=== PATIENT | female | born 1990 | race Two or more races ===

== ENCOUNTER → 2020-03-26 10:53 | Outpatient (BNVA) | payer MEDICAID, SELFPAY | PROVIDERS: PCP Internal Medicine Geriatric Medicine; Referring Provider Internal Medicine Geriatric Medicine; Visit Provider Surgery | DX: N64.4 Mastodynia (principal); Z98.82 Breast implant status | CPT/HCPCS: 99212 ==

== ENCOUNTER 2020-12-11 13:43 | Outpatient (REF) | payer MEDICAID, SELFPAY ==
--- NOTE | ~2020-12-11 | CT_ITS ---
EXAMINATION: CT HEAD WITHOUT CONTRAST CLINICAL INFORMATION: Headache COMPARISON: None TECHNIQUE: Contiguous axial imaging was performed from the skull base to vertex without intravenous administration of contrast. This CT examination was performed using dose optimization techniques as appropriate, variously including the following: *Automated exposure control *Adjustment of mA and/or kV according to patient size (this includes techniques or standardized protocols for targeted exams where dose is matched to indication/reason for exam; i.e. extremities or head) *Use of iterative reconstruction technique DLP: 789 mGy-cm FINDINGS: There is no evidence of acute intracranial hemorrhage or territorial infarction. No abnormal mass effect or midline shift is seen. Latif to white matter differentiation is well preserved. No extra-axial fluid collections are identified. The ventricles are normal in size. There is no abnormal attenuation within the brain parenchyma. The osseous structures and soft tissues are normal. There is mild mucoperiosteal thickening right posterior ethmoid and sphenoid sinuses. Rest of the paranasal sinuses and mastoid air cells are well aerated. CT/CT head/brain wo con IMPRESSION: No acute intracranial process seen. Chronic right posterior ethmoid and sphenoid sinus inflammatory changes.
== END 2020-12-11 13:44 | disposition home or self-care (01) ==
LOC: HO.CT 13:43
PROVIDERS: PCP Internal Medicine Geriatric Medicine; Visit Provider Internal Medicine Geriatric Medicine
DX: R51.9 Headache, unspecified (principal); Z84.89 Family history of other specified conditions
CPT/HCPCS: 70450

== ENCOUNTER 2021-01-04 01:42 | Emergency (ER) | payer MEDICAID, SELFPAY ==
[2021-01-04 01:55] VITALS: BP 106/72; PULSE 66; RESP 16; TEMP 36.3; O2SAT 100; BMI 25.8
--- NOTE | 2021-01-04 03:32 | ED.EYEPROB ---
HPI - Eye Problem General Chief complaint: Eye Problems Stated complaint: Eye swelling Time Seen by Provider: 01/04/21 03:32 Source: patient Mode of arrival: ambulatory Limitations: no limitations History of Present Illness HPI Narrative: left eye is swollen hot and tender, denies injury. patient is concerned that something fell in her eye. Patient denies anything getting into her eye. The pain started yesterday chief complaint: eye pain and eye redness Onset (ago): day(s) Onset description: gradual Duration: constant Location: left eye Eye Symptoms: redness Mechanism: none Severity: moderate Related Data Previous Rx's Medication Instructions Recorded erythromycin 5 mg/gram (0.5 %) eye 0.5 inch OPHTHALMIC (EYE) TID #3.5 01/04/21 ointment g Allergies Allergy/AdvReac Type Severity Reaction Status Date / Time aspirin [ASPIRIN] Allergy Severe RASH Verified 01/04/21 01:55 Review of Systems Constitutional: Constitutional: Reports no additional constitutional complaints Eyes: Eyes: Reports no additional eye complaints ENT: Denies dizziness Cardiovascular: Cardiovascular: Reports no additional cardiovascular complaints Respiratory: Respiratory: Reports as per HPI Gastrointestinal: Gastrointestinal: Reports no additional gastrointestinal complaints Genitourinary: Genitourinary: Reports no additional female genitourinary complaints Musculoskeletal: Musculoskeletal: Reports no additional musculoskeletal complaints Integumentary/Breasts: Skin/Breast: Denies rash Neurologic: Reports system reviewed and no additional complaints, except as documented, Denies dizziness and Denies Sensory deficit (Neuro) Psychiatric: Psychiatric: Denies anxiety PMFSH Past Medical History Surgical History History of breast augmentation (~10/13/18) History of tubal ligation (~02/10/14) Family History Family History Father History of colon polyps Mother History of skin cancer Social History Social History Alcohol intake: current Alcohol intake frequency: holidays/special occasions only Advance Directives: No Patient : No Physical Exam Vital Signs: Vital Signs: Last Vital Signs Temp 97.3 F 01/04/21 01:55 Pulse 66 01/04/21 01:55 Resp 16 01/04/21 01:55 BP 106/72 01/04/21 01:55 Pulse Ox 100 01/04/21 01:55 Body Mass Index 25.8 Const: General: healthy appearing Nutritional Appearance: average body habitus Orientation/consciousness: oriented to person and patient oriented x3 Limitations: no limitations HENMT: Head: Yes normal to inspection Ears: external ears normal General nose exam: Normal external nose present Mouth: Normal oral and palatal mucosa present and oropharynx normal Throat: Yes posterior oropharynx normal Eyes: Other: left upper eyelid with swelling and erythema consistent with infection, conjunctiva with no injection Neck: Other: supple Neck: Yes normal visual inspection Chest: Chest palpation & inspection: normal inspection of the chest Resp: Auscultation: clear to auscultation bilaterally Cardio: Jugular venous distension: no JVD Rate: regular rate Rhythm: regular rhythm Heart sounds: S1 normal heart sound present and S2 normal heart sound present GI: Inspection: Yes normal to inspection Palpation (GI): Soft to palpation, nontender and No hepatosplenomegaly present Auscultation: normal bowel sounds : General: Yes no CVA tenderness Back/Spine/Pelvis: Back: no CVA tenderness Skin: General skin exam: no rashes or lesions noted Neuro: General: oriented to person and patient oriented x3 Cranial nerves: Yes CN's II-XII intact bilaterally Motor exam (neuro): 5/5 motor strength present throughout Sensory Exam: No Sensory deficit (Neuro) Extrem: General: Yes normal to inspection Psych: Appearance: grossly normal Course Reevaluation(s) Reevaluation #1: upper eyelid consistent with infection will treat with erythromycin ointment and warm soaks Time: 03:39 Discharge Plan Discharge Clinical Impression: Hordeolum external Qualifiers: Laterality: left Eyelid: upper Qualified Code(s): H00.014 - Hordeolum externum left upper eyelid Patient Disposition: Home, Self-Care Additional Instructions: warm soaks to eye three times a day, apply erythromycin three times a day Prescriptions: New erythromycin 5 mg/gram (0.5 %) ointment 0.5 inch ophthalmic (eye) TID Qty: 3.5 RF: 0 Referrals: Name,MD Ephraim [Primary Care Provider] - 1 week
[2021-01-04] MEDS: Erythromycin Base 0.5% Oph Oin 1 GM TUBE 1 CM EYE-LEFT (04:38)
== END 2021-01-04 04:48 | disposition home or self-care (01) ==
PROVIDERS: Emergency Provider Emergency Medicine; PCP Internal Medicine Geriatric Medicine
DX: H00.014 Hordeolum externum left upper eyelid (principal); H57.12 Ocular pain, left eye
CPT/HCPCS: 99283

== ENCOUNTER 2021-01-06 02:12 | Emergency (ER) | payer MEDICAID, SELFPAY ==
[2021-01-06 02:41] VITALS: BP 104/73; PULSE 67; RESP 16; TEMP 36.8; O2SAT 100; BMI 25.4
--- NOTE | 2021-01-06 06:11 | ED.EYEPROB ---
HPI - Eye Problem General Chief complaint: Eye Problems Stated complaint: swollen eye Time Seen by Provider: 01/06/21 06:06 Source: patient Mode of arrival: ambulatory Limitations: no limitations History of Present Illness HPI Narrative: Patient comes emergency room complaining of left eye swelling. Patient states that she was evaluated 2 days ago, given erythromycin ointment, states that her eye keeps getting puffier, more red, more tender. Patient also complaining of sticky discharge from her eye. Patient denies fever or chills. Patient denies foreign body sensation Related Data Previous Rx's Medication Instructions Recorded erythromycin 5 mg/gram (0.5 %) eye 0.5 inch OPHTHALMIC (EYE) TID #3.5 01/04/21 ointment g cephalexin 500 mg capsule 500 mg PO BID 7 Days #14 cap 01/06/21 erythromycin 5 mg/gram (0.5 %) eye 1 appl OPHTHALMIC (EYE) DAILY #1 g 01/06/21 ointment Allergies Allergy/AdvReac Type Severity Reaction Status Date / Time aspirin [ASPIRIN] Allergy Severe RASH Verified 01/06/21 02:40 Review of Systems Review of Systems: Constitutional : No Weight loss, No Fever, No Chills, No Night Sweats, No Fatigue, No Malaise ENT/Mouth : No Hearing loss, No Ear Pain, No Nasal Congestion, No Sinus Pain, No Hoarseness, No sore throat, No Rhinorrhea, No Swallowing Difficulty Eyes: Blepharitis versus hordeolum, swelling, erythema, pain Cardiovascular : No Chest Pain, No SOB, No Dyspnea on Exertion, No Orthopnea, No Edema, No Palpitations Respiratory : No Cough, No Sputum, No Wheezing, No Smoke Exposure, No Dyspnea Gastrointestinal : No Nausea, No Vomiting, No Diarrhea, No Constipation, No abdominal Pain, No Hematochezia, No Melena Genitourinary : no irregular bleeding, No Dysuria, No Urinary Frequency, No Hematuria, No Urinary Incontinence, No Urgency, No Flank Pain, No Urinary Flow Changes, No Hesitancy Musculoskeletal : No joint pain, No Myalgias, No Joint Swelling Skin : No Skin Lesions, No rash Neuro : No Weakness, No Numbness, No Paresthesias, No Loss of Consciousness, No Dizziness, No Headache Psych : No Anxiety/Panic, No Depression, No SI/HI/AH/VH, No Social Issues, Heme/Lymph: No Bruising, No Bleeding,No Lymphadenopathy Endocrine : No Polyuria, No Polydipsia, No Temperature Intolerance PENDING SALE TO [facility] Past Medical History Surgical History History of breast augmentation (~10/13/18) History of tubal ligation (~02/10/14) Family History Family History Father History of colon polyps Mother History of skin cancer Social History Social History Alcohol intake: current Alcohol intake frequency: holidays/special occasions only Advance Directives: No Physical Exam Vital Signs: Vital Signs: Last Vital Signs Temp 98.3 F 01/06/21 02:41 Pulse 67 01/06/21 02:41 Resp 16 01/06/21 02:41 BP 104/73 01/06/21 02:41 Pulse Ox 100 01/06/21 02:41 Body Mass Index 25.4 Const: Other: Appearance: Alert. Oriented X3. No acute distress. Eyes: Pupils equal, round and reactive to light. Left upper eyelid is swollen, erythematous, painful to palpation, mild discharge in the eye, conjunctivae within normal limits. Patient does not have painful eye movements, range of motion within normal limits. ENT: Pharynx normal. Neck: Normal inspection. Neck supple. No lymph nodes noted. No crepitus CVS: Normal heart rate and rhythm. Pulses normal. Normal S1 and S2 Respiratory: No respiratory distress. Breath sounds normal. No Wheezing. No rales Abdomen: Soft and nontender. No rigidity. No distention. good BS x4 Skin: Skin warm and dry. Normal skin color. Normal skin turgor. Extremities: No lower extremity edema. No Lacerations. No Rash Neuro: Oriented X 3. No motor deficit. No sensory deficit. Moving all extermities. No slurred speech. Course Course Course Narrative: I discussed the physical exam with the patient, she likely has a hordeolum vs blepharitis. Patient instructed to continue using your medicine ointment, use warm compresses, and additionally patient will be treated with cephalexin p.o. Discharge Plan Discharge Clinical Impression: Hordeolum externum left upper eyelid Patient Disposition: Home, Self-Care Instructions: [place] (ED) Additional Instructions: Please follow-up with your primary care physician tomorrow. If you have any worsening or new symptoms, please return to the emergency room or call 911 Prescriptions: New cephalexin 500 mg capsule 500 mg PO BID 7 Days Qty: 14 RF: 0 erythromycin 5 mg/gram (0.5 %) ointment 1 appl ophthalmic (eye) DAILY Qty: 1 RF: 0 No Action erythromycin 5 mg/gram (0.5 %) ointment 0.5 inch ophthalmic (eye) TID Qty: 3.5 RF: 0
== END 2021-01-06 06:22 | disposition home or self-care (01) ==
PROVIDERS: Emergency Provider Emergency Medicine
DX: H00.014 Hordeolum externum left upper eyelid (principal); H57.12 Ocular pain, left eye; Z79.899 Other long term (current) drug therapy
CPT/HCPCS: 99283

== ENCOUNTER 2021-05-07 14:25 | Outpatient (REF) | payer MEDICAID, SELFPAY ==
--- NOTE | ~2021-05-07 | US_ITS ---
EXAMINATION: US DIAGNOSTIC ULTRASOUND BREAST, RIGHT CLINICAL INFORMATION: 22-year-old with chronic fullness retroareolar right breast several centimeters in size noted for approximately 3-4 years. No discharge. Bilateral implants placed approximately 4 years ago in [place]. No known family history breast cancer. Score 7%. COMPARISON: Diagnostic right breast ultrasound 11/24/2019, 09/30/2018. TECHNIQUE: Ultrasound right breast is targeted to the retroareolar and periareolar region. Grayscale imaging and color Doppler are performed without and with harmonics. Comparison imaging left breast is performed at time of real-time scanning. FINDINGS: There is no focal suspicious finding. There is no solid mass, architectural abnormality, duct ectasia, or edema in the soft tissue planes. No internal asymmetry appreciated on comparison imaging. The anterior implant surface appears smooth. Results are discussed with the patient at time of visit, using an gas and oil checker. Surgical consult for palpable concern was discussed. If there is concern for implant integrity, breast MRI would be recommended. US/US breast RT limited IMPRESSION: Unremarkable targeted right breast ultrasound. ASSESSMENT: BI-RADS 1: Negative RECOMMENDATION: Patient should be managed based on the clinical impression. If clinically indicated, further evaluation may be considered with surgical consult. Decision to proceed with biopsy should be based on clinical grounds and degree of clinical concern. Breast MRI may be considered if there is concern for implant integrity.
== END 2021-05-07 14:26 | disposition home or self-care (01) ==
LOC: HO.MAMMO 14:25
PROVIDERS: Visit Provider Advanced Practice Midwife
DX: N63.41 Unspecified lump in right breast, subareolar (principal)
CPT/HCPCS: 76642

== ENCOUNTER 2021-05-07 15:30 | Emergency (ER) | payer MEDICAID, SELFPAY | END 2021-05-07 20:40 | disposition left against medical advice (07) | PROVIDERS: Emergency Provider Emergency Medicine; PCP Internal Medicine Geriatric Medicine | DX: K08.89 Other specified disorders of teeth and supporting structures (principal) ==

== ENCOUNTER 2021-05-17 16:03 | Emergency (ER) | payer MEDICAID, SELFPAY | END 2021-05-17 19:11 | disposition left against medical advice (07) | PROVIDERS: Emergency Provider Emergency Medicine | DX: U07.1 COVID-19 (principal) ==

== ENCOUNTER 2021-07-06 14:27 | Emergency (ER) | payer OTHER, SELFPAY ==
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
[2021-07-06 14:30] VITALS: BP 107/68; PULSE 99; RESP 16; TEMP 36.9; O2SAT 99; BMI 24.0
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
[2021-07-06 17:06] VITALS: BP 110/71; PULSE 71; RESP 16; O2SAT 99
== END 2021-07-06 18:00 | disposition home or self-care (01) ==
PROVIDERS: Emergency Provider Internal Medicine; PCP Internal Medicine Geriatric Medicine
DX: S06.0X0A Concussion without loss of consciousness, initial encounter (principal); S13.4XXA Sprain of ligaments of cervical spine, initial encounter; M54.50 Low back pain, unspecified; R07.81 Pleurodynia; M54.2 Cervicalgia; V43.52XA Car driver injured in collision with other type car in traffic accident, initial encounter; Y93.9 Activity, unspecified; Y92.411 Interstate highway as the place of occurrence of the external cause; Y99.9 Unspecified external cause status
CPT/HCPCS: 70450; 70490; 71111; 72100; 99283

== ENCOUNTER 2021-09-08 14:47 | Emergency (ER) | payer MEDICAID, SELFPAY ==
--- NOTE | ~2021-09-08 | CT_ITS ---
EXAMINATION: CT FACIAL BONES WITHOUT CONTRAST CLINICAL INFORMATION: Concern for right jaw fracture. COMPARISON: Neck CT 07/06/2021. TECHNIQUE: CT of the face was performed without contrast. Multiplanar reformats were rendered and reviewed. This CT examination was performed using dose optimization techniques as appropriate, variously including the following: *Automated exposure control *Adjustment of mA and/or kV according to patient size (this includes techniques or standardized protocols for targeted exams where dose is matched to indication/reason for exam; i.e. extremities or head) *Use of iterative reconstruction technique DLP: 420 mGy-cm FINDINGS: There has been interval resection of the previously noted expansile lesion involving the right posterior mandible and the right posterior mandibular molar which was incorporated within the lesion has been extracted. There is now hyperdense material along the margins of the resection bed with the internal portion of the cavity demonstrating soft tissue attenuation. The inferior alveolar nerve canal is seen traversing through the resection bed. No mandibular fracture is seen. No inflammatory changes are seen within the glass robot operator space or along the floor of mouth. The upper neck soft tissues are within normal limits. The pharyngeal and laryngeal contours appear normal. There is no retropharyngeal collection. There is moderate circumferential lobular mucosal thickening in the right maxillary sinus with small amount of aerated secretions. Small amount of aerated secretions are also seen within the sphenoid sinus. There is trace opacification of the right posterior mastoid. The imaged intracranial contents are unremarkable. CT/CT facial bones wo con IMPRESSION: Previously seen lesion within the right posterior mandible has been resected and the involvement posterior mandibular molar has been extracted. Hyperdensity seen along the margins of the resection bed is likely treatment related. Correlation with surgical history would be helpful. No evidence of mandibular fracture. No acute inflammatory changes are seen. Moderate circumferential lobular mucosal thickening seen in the right maxillary sinus with small amount of aerated secretions seen in the maxillary sinus and sphenoid sinus.
[2021-09-08 15:02] VITALS: BP 108/70; PULSE 79; RESP 18; TEMP 36.8; O2SAT 100; BMI 24.0
--- NOTE | 2021-09-08 16:01 | ED_ITS ---
HPI - Dental/Oral General Chief complaint: Dental/Oral Stated complaint: dental pain Time Seen by Provider: 09/08/21 16:00 Source: patient and parts interpreter Mode of arrival: ambulatory Limitations: language barrier History of Present Illness HPI Narrative: Patient is a 30 year old female presenting to the emergency department today with right jaw pain. 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 Patient states that she bit something awkwardly yesterday and is now having right jaw pain. Patient states that she is concerned that she broke the right side of her jaw and would like imaging. Patient states that she is scheduled to have a bone graft done on the right side of her jaw to reinforce the thin areas after the tumor removal. Patient denies any dizziness, lightheadedness, abdominal pain, nausea, vomiting, fever, chills, blurry vision, double vision, loss of vision, chest pain, difficulty breathing, shortness of breath, back pain, night sweats, pain with urination, increased urinary frequency, increased urinary urgency, blood in her urine or stool, syncope or a near syncopal episode, recent trauma or falls, bowel incontinence, bladder incontinence, bowel retention, bladder retention, or any other complaints at this time. Severity: mild Severity scale (1-10): 3 Relieving factors: nothing Exacerbating factors: chewing Treatment prior to arrival: none Related Data Previous Rx's Medication Instructions Recorded erythromycin 5 mg/gram (0.5 %) eye 0.5 inch OPHTHALMIC (EYE) TID #3.5 01/04/21 ointment g cephalexin 500 mg capsule 500 mg PO BID 7 Days #14 cap 01/06/21 erythromycin 5 mg/gram (0.5 %) eye 1 appl OPHTHALMIC (EYE) DAILY #1 g 01/06/21 ointment acetaminophen 500 mg tablet 1,000 mg PO QID PRN #14 tab 07/06/21 (Tylenol Extra Strength) cyclobenzaprine 10 mg tablet 10 mg PO Q8H PRN #14 tab 07/06/21 Allergies Allergy/AdvReac Type Severity Reaction Status Date / Time aspirin [ASPIRIN] Allergy Severe RASH Verified 09/08/21 15:02 Review of Systems Constitutional: Constitutional: Reports no additional constitutional complaints, Denies chills, Denies fever(s) and Denies night sweats Eyes: Eyes: Reports no additional eye complaints, Denies blurry vision, Denies change in vision, Denies diplopia, Denies eye discharge, Denies loss of vision and Denies eye pain ENT: Denies dizziness Comments: jaw pain Cardiovascular: Cardiovascular: Reports no additional cardiovascular complaints, Denies chest pain, Denies lightheadedness, Denies Loss of Consciousness and Denies dyspnea Respiratory: Respiratory: Reports no additional respiratory complaints and Denies dyspnea Gastrointestinal: Gastrointestinal: Reports no additional gastrointestinal complaints, Denies abdominal pain, Denies melena, Denies hematochezia, Denies change in bowel habits and Denies change in stool character Genitourinary: Genitourinary: Denies hematuria, Denies urinary frequency, Denies dysuria, Denies urinary incontinence, Denies urinary hesitancy and Denies urinary urgency Musculoskeletal: Musculoskeletal: Reports no additional musculoskeletal complaints, Denies numbness and Denies tingling Neurologic: Denies dizziness, Denies loss of vision, Denies numbness and Denies tingling Psychiatric: Psychiatric: Reports no additional psychiatric complaints Endocrine: Endocrine: Reports no additional endocrine complaints Hematologic/Lymphatic: Hematologic/Lymphatic: Reports no additional hematologic/lymphatic complaints Allergic/Immunologic: Allergic/Immunologic: Reports no additional allergic/immunologic complaints PMFSH Past Medical History Attestation statement: The following information was validated with the patient. Source: old records reviewed Surgical History History of breast augmentation (~10/13/18) History of tubal ligation (~02/10/14) Family History Family History Father History of colon polyps Mother History of skin cancer Social History Social History Alcohol intake: current Alcohol intake frequency: holidays/special occasions only Advance Directives: No Advance Directives Information Provided: No Patient : No Physical Exam Vital Signs: Vital Signs: Last Vital Signs Temp 98.2 F 09/08/21 15:02 Pulse 79 09/08/21 15:02 Resp 18 09/08/21 15:02 BP 108/70 09/08/21 15:02 Pulse Ox 100 09/08/21 15:02 BMI result Body Mass Index 24.0 Const: General: cooperative, no acute distress, alert and awake Nutritional Appearance: well nourished Orientation/consciousness: patient oriented x3 Limitations: no limitations HEENT: Head: Yes normal to inspection and Yes atraumatic Ears: hearing carmita ssly normal bilaterally and external ears normal General nose exam: Normal external nose present, no nasal discharge noted and no epistaxis Face and sinus: Yes normal facial exam, No abrasion and No laceration Mouth: Normal oral and palatal mucosa present, no drooling and no muffled voice Eyes: General: appearance normal, both eyes and all related structures Periorbital: periorbital findings normal Eyelids: Yes eyelids normal Conjunctivae: conjunctivae normal Pupils: Equal, round and reactive pupils present EOM: EOMs intact bilaterally Neck: Neck: Yes normal visual inspection, Yes full ROM and Yes no lymphadenopathy Chest: Chest palpation & inspection: normal inspection of the chest Resp: Effort & Inspection: normal respiratory effort and able to speak in co mplete sentences Auscultation: clear to auscultation bilaterally Cardio: Rate: regular rate Rhythm: regular rhythm GI: Inspection: Yes normal to inspection Neuro: General: patient oriented x3 and moves all extremities Cranial nerves: Yes Equal, round and reactive pupils present Cognition (Neuro): normal cognition Motor exam (neuro): 5/5 motor strength present throughout Sensory Exam: Normal double simultaneous stimulation for sensation Coordination: [id number] test normal Extrem: General: Yes normal to inspection, Yes full ROM and Yes capillary refill normal Psych: Appearance: grossly normal Mental Status: mental status grossly normal Affect: normal affect Attitude: cooperative Thought process: Normal thought process present Thought content: Normal thought content present Insight: Good insight present (Psych) MDM - Dental/Oral MDM Narrative Medical decision making narrative: Patient is a 30 year old female presenting to the emergency department today with right sided jaw pain. Patient's physical exam was unremarkable. Patient's CT facial bones showed a resected lesion within the right posterior mandible but no acute process. I explained my physical exam findings as well as all test results to the patient. I answered all questions asked by the patient. I stressed the importance of the patient taking her medication as prescribed. I stressed the importance of the patient following up with her primary care provider and her maxilofacial surgeon. I stressed the importance of the patient returning to the emergency department immediately if her symptoms were to worsen or if she were to develop any dizziness, shortness of breath, difficulty breathing, chest pain, blurry vision, loss of vision, nausea, vomiting, abdominal pain, fever, chills, back pain, or any other complaints. Patient verbalized agreement and understanding with this treatment plan and discharge. Differential Diagnosis Differential diagnosis: Unlikely dental caries (right jaw pain) Medical Records Attestation: I reviewed the patient's medical records. Imaging Data CT Facial bones: Attestation: I personally reviewed and interpreted this imaging study as follows: Radiologist's impression: EXAMINATION: CT FACIAL BONES WITHOUT CONTRAST CLINICAL INFORMATION: Concern for right jaw fracture.? COMPARISON: Neck CT 07/06/2021.? TECHNIQUE: CT of the face was performed without contrast. Multiplanar reformats were rendered and reviewed. This CT examination was performed using dose optimization techniques as appropriate, variously including the following: *Automated exposure control *Adjustment of mA and/or kV according to patient size (this includes techniques or standardized protocols for targeted exams where dose is matched to indication/reason for exam; i.e. extremities or head) *Use of iterative reconstruction technique DLP: 420 mGy-cm FINDINGS: There has been interval resection of the previously noted expansile lesion involving the right posterior mandible and the right posterior mandibular molar which was incorporated within the lesion has been extracted. There is now hyperdense material along the margins of the resection bed with the internal portion of the cavity demonstrating soft tissue attenuation. The inferior alveolar nerve canal is seen traversing through the resection bed. No mandibular fracture is seen. No inflammatory changes are seen within the miller head wet process space or along the floor of mouth. The upper neck soft tissues are within normal limits. The pharyngeal and laryngeal contours appear normal. There is no retropharyngeal collection. There is moderate circumferential lobular mucosal thickening in the right maxillary sinus with small amount of aerated secretions. Small amount of aerated secretions are also seen within the sphenoid sinus. There is trace opacification of the right posterior mastoid. The imaged intracranial contents are unremarkable. CT/CT facial bones wo con IMPRESSION: Previously seen lesion within the right posterior mandible has been resected and the involvement posterior mandibular molar has been extracted. Hyperdensity seen along the margins of the resection bed is likely treatment related. Correlation with surgical history would be helpful. No evidence of mandibular fracture. No acute inflammatory changes are seen. ? Moderate circumferential lobular mucosal thickening seen in the right maxillary sinus with small amount of aerated secretions seen in the maxillary sinus and sphenoid sinus. Dictated By: MOIZ MEDINA MD Signed By: Electronically signed by MOIZ MEDINA MD 09/08/21 0236 Discharge Plan Discharge Clinical Impression: Jaw pain Patient Disposition: Home, Self-Care Instructions: Atypical Facial Pain (ED) Additional Instructions: Follow up with your primary care provider and maxilofacial surgeon as scheduled. Return to the emergency department immediately if your symptoms worsen or if you develop any dizziness, shortness of breath, difficulty breathing, chest pain, blurry vision, loss of vision, nausea, vomiting, abdominal pain, fever, chills, back pain, or any other complaints. Prescriptions: No Action erythromycin 5 mg/gram (0.5 %) ointment 0.5 inch ophthalmic (eye) TID Qty: 3.5 0RF cephalexin 500 mg capsule 500 mg PO BID 7 Days Qty: 14 0RF erythromycin 5 mg/gram (0.5 %) ointment 1 appl ophthalmic (eye) DAILY Qty: 1 0RF acetaminophen [Tylenol Extra Strength] 500 mg tablet 1,000 mg PO QID PRN (Reason: fever or pain) Qty: 14 0RF cyclobenzaprine 10 mg tablet 10 mg PO Q8H PRN (Reason: Muscle spasm) Qty: 14 0RF Referrals: Name,MD Ephraim [Primary Care Provider] - (Follow up with your PCP. ) Interventions: ED Discharge Assessment Last Done: 09/08/21 18:49 Discharge Date/Time: 09/08/21 18:49 Print Language: Czech
[2021-09-08] MEDS: HYDROcodone Bit/Acetam 5/325 TABLET 1 TAB PO (18:35)
== END 2021-09-08 18:49 | disposition home or self-care (01) ==
PROVIDERS: Emergency Provider Emergency Medicine; PCP Internal Medicine Geriatric Medicine
DX: K08.89 Other specified disorders of teeth and supporting structures (principal); R68.84 Jaw pain; Z79.899 Other long term (current) drug therapy
CPT/HCPCS: 70486; 99283; 99284

== ENCOUNTER 2021-12-01 00:07 | Emergency (ER) | payer MEDICAID, SELFPAY ==
--- NOTE | 2021-12-01 00:25 | ECG_ITS ---
Test Reason : DIZZINESS Blood Pressure : / mmHG Vent. Rate : 080 BPM Atrial Rate : 080 BPM P-R Int : 134 ms QRS Dur : 098 ms QT Int : 390 ms P-R-T Axes : 051 058 045 degrees QTc Int : 449 ms Normal sinus rhythm Normal ECG When compared to the previous EKG of No significant changes seen Referred By: Jesus Ascencio Electronically Signed By:Ozzie Baker
[2021-12-01 00:51] VITALS: BP 118/77; PULSE 97; RESP 16; TEMP 36.5; O2SAT 95; BMI 21.9
[2021-12-01 00:53] LABS: MANUAL DIFF FLAG NO
[2021-12-01 00:59] LABS: Basophils Percent Auto 0.3 % (0-2); Eosinophils Absolute Auto 0.2 X10*3/uL (0.0-0.4); Eosinophils Percent Auto 1.9 % (0-4); Hematocrit 37.1 % (37.0-47.0); Hemoglobin 12.7 g/dl (12.0-16.0); Imm Gran Abs Auto 0.03 X10*3/uL (0.00-0.03); Imm Gran Pct Auto 0.4 % (0.0-0.4); Lymphocytes Absolute Auto 3.4 X10*3/uL (1.2-4.9); Lymphocytes Percent Auto 42.9 % (20-40); Mean Corpuscular HGB Conc 34.2 g/dl (31.0-35.0); Mean Corpuscular Hemoglobin 30.6 pg (27.0-33.0); Mean Corpuscular Volume 89.4 fL (80.0-98.0); Mean Platelet Volume 9.3 fL (9.4-12.3); Monocytes Absolute Auto 0.5 X10*3/uL (0.1-1.2); Monocytes Percent Auto 6.5 % (2-11); Neutrophils Absolute Auto 3.8 x10*3/uL (2.0-8.3); Platelet Count 311 X10*3/uL (160-400); Red Blood Count 4.15 X10*6/uL (4.20-5.50); Red Cell Distribution Width 12.1 % (11.0-16.0)
[2021-12-01 01:21] LABS: Alanine Aminotransferase 11 U/L (0-31); Albumin Level 4.4 g/dL (3.5-5.0); Alkaline Phosphatase 102 U/L (39-117); Anion Gap 13 (12-20); Aspartate Amino Transferase 14 U/L (5-31); Bilirubin Direct 0.3 mg/dL (0.0-0.5); Bilirubin Total 0.5 mg/dL (0.0-1.0); Blood Urea Nitrogen 18 mg/dL (9-16); Carbon Dioxide 22 mmol/L (22-29); Chloride 105 mmol/L (96-108); Creatinine Clr Calc Pharmacy 92.7; Estimated Glomerular Filt Rate > 60; Glucose Random 165 mg/dL (60-115); Lipase 13 U/L (8-78); Potassium 3.4 mmol/L (3.3-5.1); Sodium 137 mmol/L (135-145); Total Protein 7.4 g/dL (6.5-8.0)
== END 2021-12-01 02:58 | disposition left against medical advice (07) ==
PROVIDERS: Emergency Provider Emergency Medicine
DX: R42 Dizziness and giddiness (principal); F41.0 Panic disorder [episodic paroxysmal anxiety]; F12.90 Cannabis use, unspecified, uncomplicated; Z79.899 Other long term (current) drug therapy
CPT/HCPCS: 36415; 80048; 80076; 83690; 85025; 93005; 99281; 99283

== ENCOUNTER 2022-09-30 13:08 | Outpatient (REF) | payer MEDICAID, SELFPAY ==
--- NOTE | ~2022-09-30 | US_ITS ---
EXAMINATION: US DIAGNOSTIC ULTRASOUND BREAST, RIGHT CLINICAL INFORMATION: 31-year-old with chronic stable subareolar palpable areas noted by patient for several years. No increasing size. Intermittent breast tenderness. No erythema or discharge. Bilateral implants placed approximately 5 years ago in [place]. COMPARISON: Right breast ultrasound 05/07/2021, 06/26/2019, 09/30/2018. TECHNIQUE: Ultrasound of the right breast is performed using grayscale imaging and color Doppler without and with harmonics. Exam is targeted to the retroareolar and periareolar anterior and mid breast. Patient is able to point areas of concern at time of imaging. FINDINGS: There is no focal suspicious finding. There is no solid mass, architectural abnormality, duct ectasia, or edema in the soft tissue planes. The implant surface appears smooth. No skin thickening. No hyperemia. There is an incidental simple cyst just under 4 mm 10:00 position 6 cm from nipple. Results are discussed with the patient at time of visit, using an interpreter and translator. Availability of diagnostic mammography for additional evaluation was discussed. In addition, breast MRI was discussed if there is concern regarding the implant integrity. Patient declined additional imaging with mammography at today's appointment. US/US breast RT limited IMPRESSION: - No solid mass or architectural abnormality. - Incidental tiny cyst 10:00 position. ASSESSMENT: BI-RADS 2: Benign RECOMMENDATION: 1. Patient should be managed based on the clinical impression. If clinically indicated, additional imaging with diagnostic mammography may be considered. If there is concern for implant integrity, then breast MR would be recommended. 2. Otherwise, routine annual screening mammography, beginning age 40, or earlier as clinical risk factors warrant. This patient's information was entered into a reminder system with a target due date for their next mammogram.
== END 2022-09-30 13:09 | disposition home or self-care (01) ==
LOC: HO.MAMMO 13:08
PROVIDERS: Visit Provider Internal Medicine Geriatric Medicine
DX: N63.41 Unspecified lump in right breast, subareolar (principal)
CPT/HCPCS: 76642

== ENCOUNTER 2023-03-22 17:41 | Outpatient (REF) | payer MEDICAID, SELFPAY ==
[2023-03-22 17:55] LABS: Appearance Urine Cloudy; Color Urine Yellow; Glucose Urine UA Negative (Negative); Leukocyte Esterase Urine Small (1+) (Negative); Nitrite Urine Negative (Negative); PH 7.5 (5.0-9.0); Specific Gravity - Urine 1.015 (1.005-1.025); UMIC TRIGGER UACC YES; Urine Blood Moderate (2+) (Negative); Urine Ketones Negative (Negative); Urine Protein 30 (1+) mg/dL (Neg-Trace)
[2023-03-22 17:57] LABS: Bacteria Urine 3+ (None Seen); Hyaline Casts Urine 0-2 /LPF (0-2); RBC Urine >20 /HPF (0-2); Squamous Epithelial Cell Urine 0-2 /HPF (0-2); UACC Culture Trigger YES; WBC Urine >50 /HPF (0-5)
== END 2023-03-22 17:42 | disposition home or self-care (01) ==
LOC: HO.HHCLNP 17:41
PROVIDERS: Visit Provider Nurse Practitioner Family
DX: R30.0 Dysuria (principal)
CPT/HCPCS: 81001; 87086; 87088; 87186

== ENCOUNTER 2023-08-18 18:20 | Outpatient (REF) | payer MEDICAID, SELFPAY ==
[2023-08-23 20:48] LABS: HPV mRNA E6/E7 rflx Not Detected (Not Detected)
[2023-08-23 22:33] LABS: C. trachomatis RNA TMA NOT DETECTED (NOT DETECTED); N. gonorrhoeae RNA TMA NOT DETECTED (NOT DETECTED); Trichomonas (NAAT) NOT DETECTED (NOT DETECTED)
== END 2023-08-18 18:21 | disposition home or self-care (01) ==
LOC: HO.HHCL 18:20
PROVIDERS: Visit Provider Advanced Practice Midwife
DX: R30.0 Dysuria (principal); Z11.3 Encounter for screening for infections with a predominantly sexual mode of transmission; Z12.4 Encounter for screening for malignant neoplasm of cervix
CPT/HCPCS: 36415; 87086; 87491; 87591; 87624; 87661; 88142

== ENCOUNTER 2024-02-24 10:03 | Outpatient (AMB) | payer MEDICAID, SELFPAY ==
--- NOTE | 2024-02-24 10:09 | MHC.OFFVIS ---
Vital Signs 02/24/24 10:27 Height 5 ft 4 in Weight 142 lb BMI 24.4 BP 123/70 Blood Pressure Location Lt brachial Position Sitting Intake Visit Reasons: Breast Pain Intake Note: Patient is seen in office for evaluation and treatment of a right breast cyst. Patient c/o: breast implants in [place] aprox 5+ yrs ago, cyst right breast, ultrasound done 09/30/22, Right sharp breast pain even with the touch. Global Process Owner Required: No Accompanied by: Self / Same As Patient Allergies aspirin [ASPIRIN] Allergy (Severe, Verified 02/24/24 10:15) RASH HPI Comments Details: 33-year-old female patient with a prior history of bilateral breast implants performed in [place] proximally 5 years ago now complaining of pain in the right breast around the nipple-areolar complex. This is been present for least a year but seems to be increasing in severity. She previously underwent ultrasound evaluation of the right breast on 09/30/2022. This revealed no suspicious findings. She was also evaluated by Plastic surgery who felt the implants were intact and no surgical intervention was recommended. Her previous mammogram was performed proximally 2 years ago but is not available at the time of this evaluation. [facility] Surgical History History of breast augmentation (~10/13/18) History of tubal ligation (~02/10/14) Family History Father History of colon polyps Mother History of skin cancer Social History Alcohol intake: current Alcohol intake frequency: holidays/special occasions only Review of Systems Const All systems reviewed & are unremarkable except as noted in HPI and below Physical Exam Vital Signs: Last Vital Signs BP 123/70 02/24/24 10:27 BMI result Body Mass Index 24.4 Const General: cooperative and no acute distress Nutritional Appearance: well nourished Orientation/consciousness: patient oriented x3 Limitations: no limitations HEENT Head: Yes normocephalic and Yes atraumatic Ears: hearing grossly normal bilaterally Chest Other: Bilateral breast implant with well-healed incisions. Left breast: No skin change, no nipple retraction, no nipple discharge, no palpable mass, no enlarged lymph nodes. Right breast: No skin change, no nipple retraction, no nipple discharge, no palpable mass, no enlarged lymph nodes Chest/axillae images: 1. Area reported by patient with a palpable mass. On my examination no discrete masses appreciated. Normal breast tissue and underlying implant. Resp Effort & Inspection: normal respiratory effort, no audible wheezes, no cough and no respiratory distress Cardio Jugular venous distension: no JVD GI Inspection: Yes normal to inspection Skin Other: Warm, dry, no rash Neuro General: patient oriented x3 Extrem General: Yes no clubbing, cyanosis or edema Assessment & Plan Assessment & Plan (1) Breast pain: Code(s): N64.4 - Mastodynia Category: Medical Plan 33-year-old female patient presenting with complaints of mainly right breast pain which seems to be increasing in severity. Examination today reveals well-healed breast augmentation incisions with no suspicious findings in either breast. I recommended further evaluation with mammogram and ultrasound. We discussed options including prophylactic tamoxifen including the risks associated with this medication. I suggested trial of avoiding caffeine and adding evening [place] as a possible supplement. She will return following the mammogram and ultrasound to reassess her symptoms and review the results of the radiologic studies. She expressed understanding and agrees with the plan. Orders: Orders MM diagnostic mammo BI Today N64.4 - Mastodynia US breast RT complete Today N64.4 - Mastodynia Coding Level of Care Code New Pt Level 4 (87555) Diagnoses Breast pain N64.4
[2024-02-24 10:27] VITALS: BP 123/70; BMI 24.4
== END 2024-02-24 10:35 | disposition home or self-care (01) ==
PROVIDERS: PCP Internal Medicine Geriatric Medicine; Visit Provider Surgery
DX: N64.4 Mastodynia (principal)
CPT/HCPCS: 99204

== ENCOUNTER → 2024-02-24 10:03 | Outpatient (BNVA) | payer MEDICAID, SELFPAY | PROVIDERS: PCP Internal Medicine Geriatric Medicine; Visit Provider Surgery | DX: N64.4 Mastodynia (principal); Z98.82 Breast implant status | CPT/HCPCS: 99202 ==

== ENCOUNTER 2024-03-27 13:47 | Outpatient (REF) | payer MEDICAID, SELFPAY ==
[2024-03-30 05:09] LABS: TS Negative Control Passed; TS Panel A 0; TS Panel B 0; TS Positive Control Passed; TSpotTB Negative (Negative)
== END 2024-03-27 13:48 | disposition home or self-care (01) ==
LOC: HO.HHCL 13:47
PROVIDERS: Visit Provider Internal Medicine Geriatric Medicine
DX: Z11.1 Encounter for screening for respiratory tuberculosis (principal)
CPT/HCPCS: 36415; 86481

== ENCOUNTER 2024-04-19 12:54 | Outpatient (REF) | payer MEDICAID, SELFPAY ==
--- NOTE | ~2024-04-19 | MM_ITS ---
EXAMINATION: BILATERAL DIGITAL DIAGNOSTIC TOMOSYNTHESIS MAMMOGRAPHY The right breast ultrasound. INDICATION: Female, 33 years of age presenting for right breast pain and palpable lumps near the area left.. COMPARISON: Comparison is made with relevant prior imaging in PACS. TECHNIQUE: Bilateral full field digital mammography and digital breast tomosynthesis was performed and interpreted with the aid of CAD software. Limited right breast ultrasound. COMPOSITION: There is extremely dense fibroglandular breast tissue. FINDINGS: Bilateral retropectoral implants are normal-appearing. Right: BB marker indicates site of palpable lump and pain without underlying abnormality. No suspicious calcifications, masses or other abnormal findings. Targeted color Doppler ultrasound in the right breast area of pain and palpable lumps from 9-3:00 demonstrates normal fibroglandular breast tissue. There is no sonographic abnormality. Left: No suspicious calcifications or masses or other abnormal findings. MM/MM tomosynthesis diag imp BI IMPRESSION: Left: Negative. Right: No mammographic or sonographic abnormality to account for the area of patient's pain and palpable lumps. Recommend clinical evaluation and follow-up. BI-RADS 1 negative Recommendation: recommend clinical evaluation and follow-up and age-appropriate mammography screening at age 40. These findings and recommendations were communicated to the patient by the technologist. I personally reviewed the study and agree with the dictated report. Electronically signed by: Cherie Thorpe DO 04/19/2024 02:10 PM ALEXANDRE GARCIA
== END 2024-04-19 12:55 | disposition home or self-care (01) ==
LOC: HO.MAMMO 12:54
PROVIDERS: PCP Internal Medicine Geriatric Medicine; Visit Provider Surgery
DX: N64.4 Mastodynia (principal)
CPT/HCPCS: 76642; 77062; 77066

== ENCOUNTER → 2024-04-19 13:30 | Outpatient (BNV) | payer MEDICAID, SELFPAY | PROVIDERS: PCP Internal Medicine Geriatric Medicine; Visit Provider Internal Medicine | DX: N64.4 Mastodynia (principal) | CPT/HCPCS: 76642; 77062; 77066 ==

== ENCOUNTER 2024-04-26 12:28 | Outpatient (REF) | payer MEDICAID, SELFPAY ==
[2024-04-27 14:35] LABS: Bacterial Vaginosis PCR POSITIVE (Negative); Candida Group PCR NOT DETECTED (Not Detect); Candida glab krusei PCR NOT DETECTED (Not Detect); Trichomonas vaginalis PCR NOT DETECTED (Not Detect)
[2024-04-27 14:58] LABS: CT PCR NOT DETECTED (Not Detect.); NG PCR NOT DETECTED (Not Detect.)
== END 2024-04-26 12:29 | disposition home or self-care (01) ==
LOC: HO.HHCLNP 12:28
PROVIDERS: Visit Provider Internal Medicine
DX: N89.8 Other specified noninflammatory disorders of vagina (principal); R30.0 Dysuria
CPT/HCPCS: 0352U; 87086; 87491; 87591

== ENCOUNTER 2024-08-16 16:30 | Outpatient (REF) | payer MEDICAID, SELFPAY ==
--- OUTSIDE RECORDS SUMMARY | 2024-08-16 18:08 | XMS_ITS | Encounter Summary ---
Author Organization [employer] Address [address] [place] [address] Care Team Providers Care Aerodynamic Consultant Name Role Phone Name, Ephraim FERGUSON Primary Care Provider [phone] Encounter Details Date Type Department Care Team (Late st Contact Info) Description 05/13/2022 Abstract [facility] [address], [place] [phone] Name, MD Ephraim [address] [place] [address] Social History Tobacco Use Types Packs/Day Years Used Date Smoking Tobacco: Never Smokeless Tobacco: Never Depression Answer Date Recorded Patient Health Questionnaire-9 Score 24 05/13/2022 Depression Answer Date Recorded Patient Health Questionnaire-2 Score 6 05/13/2022 Comments Unknown Sex and Gender Information Value Date Recorded Sex Assigned at Female 03/16/2022 10:30 AM EDT Legal Sex Female 10:30 AM EDT Gender Identity Female 03/16/2022 10:30 AM EDT Sexual Orientation Straight 03/16/2022 10 :30 AM EDT COVID-19 Exposure Response Date Recorded In the last 10 days, have yo u been in contact with someone who was confirmed or suspected to have Coronavirus/COVID-19? No / Unsure 05/13/2022 3:07 PM EST documented as of this encounter Plan of Treatment Upcoming Encounters Date Type Department Care Team (Late st Contact Info) Description 10/16/2024 3:00 PM EDT Office Visit [facility] [address], [place] [phone] Renetta Negro [address], [place] [phone] 11/07/2024 10:15 AM EDT Office Visit [facility] [place] [address] Name, MD Ephraim [facility] [place] [address] 11/13/2024 10:00 AM EDT Office Visit [facility] [place] [address] Florencia Lee CN [address] [place] [address] documented as of this encounter Visit Diagnoses Not on filedocumented in this encounter Additional Health Concerns Assessment Noted Time PHQ-9 Depression Total Score: 24 022 3:27 PM EST documented as of this encounter Care Teams Aerodynamic Consultant Relationship Specialty Start Date End Date Name, MD Ephraim [facility] [place] [address] PCP - General Family Medicine 01/31/16 documented as of this encounter
--- OUTSIDE RECORDS SUMMARY | 2024-08-16 18:08 | XMS_ITS | Encounter Summary ---
Author Organization [employer] Address [address] [place] [address] Care Team Providers Care Janitorial Tech Name Role Phone Name, Ephraim FERGUSON Primary Care Provider [phone] Encounter Details Date Type Department Care Team (Latest Contact Info) Description 08/16/2024 Travel Social History Tobacco Use Types Packs/Day Years Used Date Smoking Tobacco: Never Passive Smoke Exposure: Never Smokeless Tobacco: Never Alcohol Use Standard Drinks/Week Comments Not Currently 0 (1 standard drink = 0.6 oz pur e alcohol) Occassionally Depression Answer Date Recorded Patient Health Questionnaire-9 Score 24 05/13/2022 Housing Stability Answer Date Recorded What is your housing situation today? I have denniskeyona eason 08/09/[address] you li ve. Do you have problems with any of the following? None of the above 08/09/2023 Food Insecurity Answer Date Recorded Within the past 12 months, y ou worried that your food would run out before you got money to buy more: Never True 08/09/2023 Within the past 12 months,th e food you bought just didn't last and you didn't have enough money to get more: Never True Transportation Answer Date Recorded In the past 12 months, has l ack of transportation kept you from medical appts, meetings, work or from getting things needed for daily living? No 08/09/2023 Utilities Answer Date Recorded In the past 12 months, has t he electric, gas, oil or water company threatened to shut off services in your home? No 08/09/2023 Depression Answer Date Recorded Patient Health Questionnaire-2 Score 6 05/13/2022 Comments No Sex and Gender Information Value Date Recorded Sex Assigned at Female 03/16/2022 10:30 AM EDT Legal Sex Female 10:30 AM EDT Gender Identity Female 03/16/2022 10:30 AM EDT Sexual Orientation Straight 03/16/2022 10 :30 AM EDT documented as of this encounter Plan of Treatment Upcoming Encounters Date Type Department Care Team (Late st Contact Info) Description 10/16/2024 3:00 PM EDT Office Visit [facility] [address] [place] [address] Sruthi, Renetta [address] [place] [address] 11/07/2024 10:15 AM EDT Office Visit [facility] [address] [place] [address] Name, MD Ephraim [address] [place] [address] 11/13/2024 10:00 AM EDT Office Visit [facility] [address] [place] [address] Florencia Lee CNM [address] [place] [address] documented as of this encounter Visit Diagnoses Not on filedocumented in this encounter Additional Health Concerns Assessment Noted Time PHQ-9 Depression Total Score: 24 05/13/2 022 3:27 PM EST documented as of this encounter Care Teams Janitorial Tech Relationship Specialty Start Date End Date NameEphraim MD [address] [place] [id number] PCP - General Family Medicine 01/31/16 documented as of this encounter
--- OUTSIDE RECORDS SUMMARY | 2024-08-16 18:08 | XMS_ITS | Encounter Summary ---
Author Organization [facility] [employer] Address [address] [facility] [address] [place] [address] Care Team Providers Care Workers Compensation Analyst Name Role Phone Name, Ephraim FERGUSON Primary Care Provider [phone] Encounter Details Date Type Department Care Team ([facility] st Contact Info) Description 05/08/2024 Orders Only [facility] [address] [place], [place] [phone] Kermit Rivera MD [address] [place] [address] Social History Tobacco Use Types Packs/Day Years Used Date Smoking Tobacco: Never Passive Smoke Exposure: Never Smokeless Tobacco: Never Alcohol Use Standard Drinks/Week Comments Not Currently 0 (1 standard drink = 0.6 oz pur e alcohol) Occassionally Depression Answer Date Recorded Patient Health Questionnaire-9 Score 24 05/13/2022 Housing Stability Answer Date Recorded What is your housing situation today? I have dennis eason 08/09/[address] you [...] t he electric, gas, oil or water [employer] threatened to shut off services in your [...] Description 10/16/2024 3:00 PM EDT Office Visit [facility] [address] [place] [address] Kem Negroaris [address] [place] [address] 11/07/2024 10:15 AM EDT Office Visit [facility] [address] [place] [phone] Name, MD Ephraim [address] [place] [address] 11/13/2024 10:00 AM EDT Office Visit [facility] [address] [place] [address] Florencia Lee, LEOLA [address] [place] [address] documented as of this encounter Visit Diagnoses Not on filedocumented in this encounter Additional Health Concerns Assessment Noted Time PHQ-9 Depression Total Score: 24 05/13/2 022 3:27 PM EST documented as of this encounter Care Teams Workers Compensation Analyst Relationship Specialty Start Date End Date Name, MD Ephraim [address] [place] [id number] PCP - General Family Medicine 01/31/16 documented as of this encounter
--- OUTSIDE RECORDS SUMMARY | 2024-08-16 18:08 | XMS_ITS | Encounter Summary ---
Author Organization [employer] Address [address] [facility] [address] [place] [address] Care Team Providers Care Sequins Spooler Name Role Phone Name, Ephraim FERGUSON Primary Care Provider [phone] Reason for Visit * Reason Comments Gynecologic Exam Encounter Details Date Type Department Care Team (Latest Contact Info) Description 08/16/2024 10:30 AM EDT Procedure Visit [facility] [address] [place], [place] [phone] Florencia Lee [facility] [address] [place], [place] [phone] Screening examination for venereal disease (Primary Dx) Social History Tobacco Use Types Packs/Day Years [...] AM EDT documented as of this encounter Last Filed Vital Signs Vital Sign Reading Time Taken Comments Blood Pressure 110/69 08/16/2024 10:38 AM EDT Pulse 71 08/16/2024 10:38 AM EDT Temperature 36.6 ??C (97.9 ??F) 08/16/2024 10:38 AM E DT Respiratory Rate 20 08/16/2024 10:38 AM EDT Oxygen Saturation 99% 08/16/2024 10:38 AM EDT Inhaled Oxygen Concentration - - Weight 67.1 kg (148 lb) 08/16/2024 10:38 AM EDT Height 162.6 cm (5' 4 ) 08/16/2024 10:38 AM EDT Body Mass Index 25.4 08/16/2024 10:38 AM EDT documented in this encounter Progress Notes * Florencia Lee CNM - 08/16/2024 10:30 AM EDT Subjective Patient ID: Anna Hall is a 33 y.o. female who presents for [employer] visit Seen by Dr. Bethea 02/2024 for breast pain. Breast imaging negative 04/2024. Last visit with fl 08/2023. Has tubal ligation. Pap NIL/HPV neg 08/2023. Vaginal chlamydia positive, oral negative 07/19. Doxy rx'd. HIV, syphilis, Hep C and gonorrhea from both sites negative. Partner treated, waited until 7 d after treatment to have sex. Was having some cramping prior to diagnosis, this resolved. Would like full STI testing today. No risk factors for Hep C. No Hep B or trichomonas testing on file. Patient seen in conjunction with [employer] Allan student. I was present for and confirmed all pertinent elements in the history, exam, assessment of the patient, and the plan of care, and agree with all findings. Review of Systems Constitutional: Negative for chills and fever. Genitourinary: Negative for pelvic pain and vaginal discharge. Objective BP 110/69 (BP Location: Left arm, Patient Position: Sitting, BP Cuff Size: Adult) Pulse 71 Temp97.9 ??F (36.6 ??C) (Temporal) Resp 20 Ht 5' 4 (1.626 m) Wt 148 lb (67.1 kg) LMP 08/09/2024 (Approximate) SpO2 99% BMI 25.40 kg/m?? Physical Exam Exam conducted with a professor of mathematics present (Florencia Lee CNM). Constitutional: Appearance: Normal appearance. Genitourinary: General: Normal vulva. Labia: Right: No rash, tenderness, lesion or injury. Left: No rash, tenderness, lesion or injury. Vagina: Normal. No signs of injury and foreign body. No vaginal discharge, erythema, tenderness, bleeding, lesions or prolapsed vaginal russell. Cervix: No cervical motion tenderness, discharge, friability, lesion, erythema, cervical bleeding or eversion. Comments: Bimanual deferred Neurological: Mental Status: She is alert. Psychiatric: Mood and Affect: Mood normal. Behavior: Behavior normal. Assessment/Plan Diagnoses and all orders for this visit: Screening examination for venereal disease - Syphilis Screen; Future - HIV-1/2 Antigen and Antibodies, Fourth Generation, with Reflexes; Future - Trichomonas RNA (Urine/Vaginal) - Hepatitis B Core Antibody, Total; Future - Hepatitis B Surface Antibody, Qualitative; Future - Hepatitis B surface antigen, EIA; Future - Chlamydia/N. Gonorrhoeae RNA, TMA, Urogenitial; Future Advised to defer Gonorrhea/Chlamydia testing for another 1-2 weeks as she finished antibiotics lessthan 4 weeks ago. Vaginal trichomonas and serum labs sent. Will contact with results. Pap/HPV Q3y until 2035 due to possible hx cryo/LEEP in 2010. documented in this encounter Plan of Treatment Upcoming Encounters Date Type Department Care Team (Late st Contact Info) Description 10/16/2024 3:00 PM EDT Office Visit [facility] [address] [place] [address] Kem Negroaris [address] [place] [address] 11/07/2024 10:15 AM EDT Office Visit [facility] [address] [place] [address] Name, MD Ephraim [address] [place] [address] 11/13/2024 10:00 AM EDT Office Visit [facility] [address] [place] [address] Florencia Lee CNM [address] [place] [address] Scheduled Orders Name Type Priority Associated Diagnoses Orde r Schedule Syphilis Screen Lab Routine Screening examination for venereal disease Expected: 08/16/2024 (Approximate), Expires: 08/16/2025 HIV-1/2 Antigen and Antibodies, Fourth Generation, with Reflexes Lab Routine Screening examination for venereal disease Expected: 08/16/2024 (Approximate), Expires: 08/16/2025 Trichomonas RNA (Urine/Vaginal) Lab Routine Screening examination for venereal disease Ordered: 08/16/2024 Hepatitis B Core Antibody, Total Lab Routine Screening examination for venereal disease Expected: 08/16/2024 (Approximate), Expires: 08/16/2025 Hepatitis B Surface Antibody, Qualitative Lab Routine Screening examination for venereal disease Expected: 08/16/2024 (Approximate), Expires: 08/16/2025 Hepatitis B surface antigen, EIA Lab Routine Screening examination for venereal disease Expected: 08/16/2024 (Approximate), Expires: 08/16/2025 Chlamydia/N. Gonorrhoeae RNA, TMA, Urogenitial Microbiology Routine Screening examination for venereal disease Expected: 08/30/2024 (Approximate), Expires: 08/16/2025 documented as of this encounter Visit Diagnoses Diagnosis Screening examination for venereal disease- Primary documented in this encounter Additional Health Concerns Assessment Noted Time PHQ-9 Depression Total Score: 24 022 3:27 PM EST documented as of this encounter Care Teams Sequins Spooler Relationship Specialty Start Date End Date Name, MD Ephraim [address] [place] [address] PCP - General Family Medicine 01/31/16 documented as of this encounter
--- OUTSIDE RECORDS SUMMARY | 2024-08-16 18:08 | XMS_ITS | Clinical Summary ---
Author Organization [employer] Address 75 [facility] 7t [place] [address] Care Team Providers Care Blend Plant Operator Name Role Phone Name, Ephraim FERGUSON Primary Care Provider [phone] Allergies Active Allergy Reactions Criticality Noted Date Comments Aspirin 06/26/2016 Other reaction(s): rash Medications * This document contains information received from the source organization and may not represent a complete record from that organization. SUMAtriptan (Imitrex) 25 MG tablet take 1 tablet by oral route after onset of migraine; may repeat after 2 hours if headache returns,not to exceed 200mg in 24hrs 1 Active sertraline (Zoloft) 50 MG tabletIndicatio ns:Reactive depression,Adju stment insomnia,Anxiet y Take 1 tablet (50 mg) by mouth in the morning. 90 tablet 2 3 Active Additional Information Patient not taking.Reported on 01/10/2024 busPIRone (Buspar) 7.5 MG tabletIndicatio ns:Reactive depression,Adju stment insomnia,Anxiet y Take 1 tablet (7.5 mg) by mouth 2 times daily. 60 tablet 11 3 Active traZODone (Desyrel) 50 MG tabletIndicatio ns:Adjustment insomnia Take 1 tablet (50 mg) by mouth at bedtime. 90 tablet 1 3 Active Additional Information Patient not taking.Reported on 01/10/2024 Hospital, Clinic, or Other Facility Administered Medication Ordered Dose Route Frequency Start Date End Date Status doxycycline (Vibramycin) capsule 100 mgIndications:Chlamydia 100 mg PO 2 times daily 03/01/2024 Active doxycycline (Adoxa) tablet 100 mgIndications:Chlamydia 100 mg PO Once 07/19/2024 07/26/2024 E nded Active Problems Problem Noted Date Diagnosed Date Acute cystitis without hematuria 04/26/2024 Assessment & Plan (04/26/2024 5:28 PM EST): Symptoms started 1 week ago, have been worsening, denied fever/chills, complains of dysuria/frequency/urgency, on examination suprapubic tenderness noted Will start on nitrofurantoin, told to remain well hydrated, urine culture sent, er precautions reviewed Breast pain, right 01/10/2024 Subareolar mass of right breast 01/10/2024 Assessment & Plan (01/10/2024 11:12 AM EDT): Repeat imaging due ( ordered 09/07). Referral to surgeon as pt endorses worsening tenderness Aware of s/s to report Family problems 05/12/2023 Assessment & Plan (05/14/2023 4:22 PM EST): During IBH Consult Anna presenting with depressed mood, loss of interests/pleasure , changes in sleep difficulty falling asleep, change in appetite or weight reduce appetite, trouble concentrating, thoughts of worthlessness or guilt, fatigue/loss of energy, hopelessness, worthlessness , difficulty concentrating and excessive worry/anxiety, difficulty controlling worry, restless/keyed up/On edge, easily fatigued, difficulty concentrating/Mind going blank , irritability, and sleep disturbance difficulty falling asleep; for a period of 0-6 mo, for all symptoms in the context of family issues and relationship issues. Difficult parent relationship is identified as main trigger for symptoms. Anna has lack of support/network which also exacerbates severe depression. PLAN: (check all that apply) New/Additional Services needed PCP management Off-site services for , Behavioral Health Integration Plan External OP therapy referral , Patient Self Plan Patient to utilize skills provided in intervention , Patient to reach out to [facility] team as needed, and Patient to engage in OP therapy Recurrent major depressive disorder 05/12/2022 Assessment & Plan (05/14/2023 4:22 PM EST): During IBH Consult Anna presenting with depressed mood, loss of interests/pleasure , changes in sleep difficulty falling asleep, change in appetite or weight reduce appetite, trouble concentrating, thoughts of worthlessness or guilt, fatigue/loss of energy, hopelessness, worthlessness , difficulty concentrating and excessive worry/anxiety, difficulty controlling worry, restless/keyed up/On edge, easily fatigued, difficulty concentrating/Mind going blank , irritability, and sleep disturbance difficulty falling asleep; for a period of 0-6 mo, for all symptoms in the context of family issues and relationship issues. Difficult parent relationship is identified as main trigger for symptoms. Anna has lack of support/network which also exacerbates severe depression. PLAN: (check all that apply) New/Additional Services needed PCP management Off-site services for , Behavioral Health Integration Plan External OP BH therapy referral , Patient Self Plan Patient to utilize skills provided in intervention , Patient to reach out to [facility] team as needed, and Patient to engage in OP therapy Anxiety 08/24/2018 Assessment & Plan (05/14/2023 4:22 PM EST): During IBH Consult Anna presenting with depressed mood, loss of interests/pleasure , changes in sleep difficulty falling asleep, change in appetite or weight reduce appetite, trouble concentrating, thoughts of worthlessness or guilt, fatigue/loss of energy, hopelessness, worthlessness , difficulty concentrating and excessive worry/anxiety, difficulty controlling worry, restless/keyed up/On edge, easily fatigued, difficulty concentrating/Mind going blank , irritability, and sleep disturbance difficulty falling asleep; for a period of 0-6 mo, for all symptoms in the context of family issues and relationship issues. Difficult parent relationship is identified as main trigger for symptoms. Anna has lack of support/network which also exacerbates severe depression. PLAN: (check all that apply) New/Additional Services needed PCP management Off-site services for , Behavioral Health Integration Plan External OP BH therapy referral , Patient Self Plan Patient to utilize skills provided in intervention , Patient to reach out to [facility] team as needed, and Patient to engage in OP BH therapy Hypertrophy of tonsils 08/24/2018 Palpitations 08/24/2018 Syncope and collapse 08/24/2018 Acne vulgaris 11/05/2017 Epidermoid cyst 11/05/2017 Encounters Date Type Department Care Team Description 08/16/2024 10:30 AM EDT Procedure Visit [facility] [place] [address] Florencia Lee CNM Screening examination for venereal disease (Primary Dx) 08/16/2024 Travel 08/09/2024 Population [facility] Risk Score [facility] (C3) Department [address] [phone] Provider, Population Health Generic 08/01/2024 Telephone [facility] [place] [address] Ephraim Cox MD No Show 08/01/2024 Telephone [facility] [place] [address] Florencia Lee CNM No Show 07/31/2024 Telephone [facility] [place] [address] Florencia Lee CNM Insurance 07/27/2024 Telephone [facility] [place] [address] Mansoor Potter [place] Appointment Request 07/26/2024 Telephone [facility] [place] [address] Ephraim Cox MD Appointment Request 07/20/2024 Orders Only [facility] [place] [address] Jackie Miller RN 07/19/2024 3:30 PM EST Clinical Support [facility] [place] [id number] Ade Wood, LEENA Chlamydia 07/19/2024 Travel 06/16/2024 Telephone [facility] [address] Ynes Contreras [place] august Recall from Last 3 Months Immunizations Name Administration Dates Next Due DTaP 07/17/1997, 4,05/29/1993,1992,01/08/1993 Influenza injectable quadriv alent IIV4 with preservative 02/11/2016 Influenza injectable quadriv alent preservative free 02/18/2022,07/31/2021 Pfizer Covid-19 Vaccine 12+ maddie-sucrose (Latif Cap) 07/29/2021 Tdap 07/31/2021 Social History Tobacco Use Types Packs/Day Years Used Date Smoking Tobacco: Never Passive Smoke Exposure: Never Smokeless Tobacco: Never Tobacco Cessation:Counseling Given: Not Answered Alcohol Use Standard Drinks/Week Comments Not Currently [...] Orientation Straight 03/16/2022 10 :30 AM EDT Last Filed Vital Signs Vital Sign Reading [...] Mass Index 25.4 08/16/2024 10:38 AM EDT Plan of Treatment Upcoming Encounters Date Type Department Care Team (Late st Contact Info) Description 10/16/2024 3:00 PM EDT Office Visit [facility] ADULT DENTAL [address] [place] [address] Sruthi, Renetta [address] [place] [address] 11/07/2024 10:15 AM EDT Office Visit [facility] MEDICINE [address] [place] [address] Name, MD Ephraim [address] [place] [address] 11/13/2024 10:00 AM EDT Office Visit [facility] [address] [place] [address] Florencia Lee, CNM [address] [place] [address] Health Maintenance Due Date Last Done Comments Alcohol/Substance Use Screening 2004 Hepatitis B Vaccines (1 of 3 - 19+ 3-dose series) 10/23/2011 Dental Oral Exam 02/20/2022 08/20/2021 Dental Prophylaxis 02/20/2022 08/20/2021 Dental X-Ray: Bitewings 08/21/2022 08/20/2021 Depression Monitoring (PHQ-9) 11/11/2022 05/13/2022, 05/13/2022 Depression Screening 05/13/2023 05/13/2022, 05/13/20 COVID-19 Vaccine ( season) 2024 04/15/2022, 07/29/2021, 03/10/2021, Additional history exists Influenza Vaccine (#1) 2024 , 07/31/2021, 02/11/2016 Dental X-Ray: Full Mouth 05/01/2024 04/30/2021 SDOH Screening 08/08/2024 08/09/2023 Family Planning (PISQ) 08/17/2024 08/18/2023 Tobacco Screening 08/16/2025 08/16/2024 Cervical Cancer Screening 08/17/2026 HPV/Cotest 08/17/2026 08/18/2023 Pap Smear 08/17/2026 08/18/2023, 08/18/2023 DTaP/Tdap/Td Vaccines (7 - Td or Tdap) 08/01/2031 07/31/2021, 07/17/1997, 01/22/1994, Additional history exists Zoster Vaccines (1 of 2) 2042 RSV Patients and Patients Aged 60 years or older (1 - 1-dose 75+ series) 10/23/2067 HIV Screening Completed 07/17/2024, 07/15, 04/21/2021, Additional history exists Hepatitis C Screening Completed 07/17/2024 , 07/31/2021, 04/21/2021 HIB Vaccines Aged Out No longer eligi ble based on patient's age to complete this topic HPV Vaccines Aged Out No longer eligi ble based on patient's age to complete this topic Hepatitis A Vaccines Aged Out No long er eligible based on patient's age to complete this topic IPV Vaccines Aged Out No longer eligi ble based on patient's age to complete this topic Meningococcal Vaccine Aged Out No don marline eligible based on patient's age to complete this topic Pneumococcal Vaccine: Pediatrics (0 to 5 Years) and At-Risk Patients (6 to 49) Years) Aged Out No longer eligible based on patient's age to complete this topic RSV under 20 months Aged Out No longe r eligible based on patient's age to complete this topic Rotavirus Vaccines Aged Out No longer eligible based on patient's age to complete this topic Procedures Procedure Name Priority Date/Time Associated Diagnosis Comments HIV ANTIBODY/ANTIGEN ([place] [facility]) Routine 07/17/2024 HEPATITIS C ANTIBODY ([place] [facility]) Routine 07/17/2024 SYPHILIS ABS ([place] [facility]) Routine 07/17/2024 CHLAMYDIA/GONORRHEA VAGINAL SWAB ([place] D[facility]) Routine 07/17/2024 CHLAMYDIA/GONORRHEA THROAT SWAB ([place] DPH) Routine 07/17/2024 HPV MRNA E6/E7 REFLEX TO HPV 16, 18/45 Routine 08/18/2023 9:59 AM EDT IMAGE-GUIDED PAP W/AGE BASED SCR,W/CT/NG/TRICH Routine 08/18/2023 9:59 AM EDT Cervical cancer screening Encntr screen for infections w sexl mode of transmiss PROPHYLAXIS - ADULT Routine 08/20/2021 1 2:00 AM EDT BITEWINGS - 4 RADIOGRAPHIC IMAGES Routine 08/20/2021 12:00 AM EDT PERIODIC ORAL EVALUATION - ESTABLISHED PATIENT Routine 08/20/2021 12:00 AM EDT PANORAMIC RADIOGRAPHIC IMAGE Routine 04/30/2021 12:00 AM EST from Last 3 Months or Most Recently Relevant to Health Maintenance Results * (ABNORMAL) Chlamydia/Gonorrhea Vaginal Swab ([place] [facility]) (07/17/2024) Chlamydia Vaginal Swab Positive(A) Negative, Indeterminate, None Detected, Invalid, Specimen unsatisfactory for evaluation, Weakly Positive Gonorrhea Vaginal Swab Negative Negative, Indeterminate, None Detected, Invalid, Specimen unsatisfactory for evaluation, Weakly Positive Swab Vaginal structure / Unknown 07/17/2024 us Historical Provider LAB MICROBIOLOGY - GENERA L ORDERABLES Final Result * Chlamydia/Gonorrhea Throat Swab ([place] [facility]) (07/17/2024) Chlamydia Throat Swab Negative Gonorrhea Throat Swab Negative Swab 07/17/2024 us Historical Provider LAB MICROBIOLOGY - GENERA L ORDERABLES Final Result * Syphilis Antibodies (DPH) (07/17/2024) Syphilis Abs Nonreactive Borderline, Nonreactive, Weakly Reactive, Inconclusive, Specimen unsatisfactory for evaluation Blood Venous blood specimen / Unknown 07/17/2024 Result [facility] Historical Provider MD LAB BLOOD ORDERABLES Jennifer l Result * Hepatitis C Antibody ([facility]) (07/17/2024) Hepatitis C Ab Nonreactive Blood 07/17/[address] [facility] Provider MD LAB BLOOD ORDERABLES Jennifer l Result * HIV Ab/Ag ([facility]) (07/17/2024) HIV Ag/Ab Nonreactive Blood 07/17/[address] [facility] Provider MD LAB BLOOD ORDERABLES Jennifer l Result * Pap with NG,CT,Trich (08/18/2023 9:59 AM EDT) Pathologist [facility] Trichomonas (NAAT) NOT DETECTED NOT DETECTED [facility] Comment:The analytical perfo rmance characteristics of thisassay have been determined by [employer]. Themodifications have not been cleared or approved bythe FDA. This assay has been validated pursuant to theIA regulations and is used for clinical purposes.For additional information, please refer tohttp://education.[employer]/faq/Trichomonastma(This link is being provided for information/educational purposes only.)THIS TEST WAS PERFORMED AT:[facility] [place] [id number] MAHARAJ MD CTNG Ref Lab NOT DETECTED NOT DETECTED [facility] NG Ref Lab NOT DETECTED NOT DETECTED [facility] Pap Vial Vaginal structure / Unknown 08/18/2023 9:59 AM EDT 08/19/2023 6:30 AM EDT Result [facility] Florencia Lee CNM LAB CYTOLOGY ORDERABLES F inal Result [facility] [address] [place] [phone] [phone] * HPV mRNA E6/E7 w/Reflex to HPV Genotypes 16, 18/45 (08/18/2023 9:59 AM EDT) HPV nRNA E6/E7 Not Detected Not Detected [facility] Comment:Methodology: Transcr iption-Mediated AmplificationThis assay detects E6/E7 viral messenger RNA (mRNA) from 14high-risk HPV types (16,18,31,33,35,39,45,51,52,56,58,59,66,68).Cervical sources are required for HPV testing.If a vaginal source from a patient who has had atotal hysterectomy with removal of cervix wassubmitted, please contact the testing laboratoryfor alternative testing options.For additional information, please refer tohttp://education.[employer]/faq/SGI044t0(This link if provided for information/educational purposes only.)THIS TEST WAS PERFORMED AT:[facility] [place] [phone] MAHARAJ MD HPV mRNA E6/E7 TNP [facility] HPV 16 RNA [facility] HPV 18/45 RNA [facility] 08/18/2023 9:59 AM EDT 08/19/2023 6:30 AM EDT Florencia BHAGAT LAB CYTOLOGY ORDERABLES F inal Result [facility] [address] [place] [address] [phone] from Last 3 Months or Most Recently Relevant to Health Maintenance Insurance [facility] C3 HSN FULL DENTAL-[facility] MEDICAID STAND ADULT DENTAL - N FULL (MEDICAID) Care Teams Blend Plant Operator Relationship Specialty Start Date End Date Name, MD Ephraim [address] [place] [phone] PCP - General Family Medicine 01/31/16
--- OUTSIDE RECORDS SUMMARY | 2024-08-16 18:08 | XMS_ITS | Encounter Summary ---
Author Organization [employer] Address [address] [facility] 7t [place] [address] Care Team Providers Care Manual Winder Name Role Phone Name, Ephraim FERGUSON Primary Care Provider [phone] Encounter Details Date Type Department Care Team (Latest Contact Info) Description 08/20/2021 Abstract [facility] CONVERSIONS Dental, Provider, DDS Social History Tobacco Use Types Packs/Day Years Used Date Smoking Tobacco: Never Assessed Comments Unknown Sex and Gender Information Value Date Recorded Sex Assigned at Female 03/16/2022 10:30 AM EDT Legal Sex Female 10:30 AM EDT Gender Identity Female 03/16/2022 10:30 AM EDT Sexual Orientation Straight 03/16/2022 10 :30 AM EDT documented as of this encounter Plan of Treatment Upcoming Encounters Date Type Department Care Team ( st Contact Info) Description 10/16/2024 3:00 PM EDT Office Visit [facility] ADULT DENTAL [address] [place] [address] Renetta Negro [address] [place] [address] 11/07/2024 10:15 AM EDT Office Visit [facility] MEDICINE [address] [place] [phone] Name, MD Ephraim [address] [place] [address] 11/13/2024 10:00 AM EDT Office Visit [facility] MEDICINE [address] [place] [address] Florencia Lee CNM [address] [place] [address] documented as of this encounter Visit Diagnoses Not on filedocumented in this encounter Care Teams Manual Winder Relationship Specialty Start Date End Date Name, MD Ephraim [address] [place] [address] PCP - General Family Medicine 01/31/16 documented as of this encounter
--- OUTSIDE RECORDS SUMMARY | 2024-08-16 18:08 | XMS_ITS | Encounter Summary ---
Author Organization [employer] Address 75 [facility] 7t [place] [address] Care Team Providers Care Network Administrator Name Role Phone Name, Ephraim FERGUSON Primary Care Provider [phone] Reason for Visit * Reason Onset Date Comments Appointment Request 07/26/2024 Encounter Details Date Type Department Care Team ([facility] st Contact Info) Description 07/26/2024 Telephone [facility] MEDICINE [address] [place], [place] [phone] Name, MD Ephraim [address] [place] [address] Appointment Request Social History Tobacco Use Types Packs/Day Years [...] AM EDT documented as of this encounter Miscellaneous Notes * Telephone Encounter - Matheus Lebron - 07/26/2024 2:29 PM EDT Tc from pt requesting appointment to be seen by PCP. No further info discussed. documented in this encounter Plan of Treatment Upcoming Encounters Date Type Department Care Team (Late st Contact Info) Description 10/16/2024 3:00 PM EDT Office Visit [facility] ADULT DENTAL [address] [place] [address] Sruthi, Renetta [address] [place] [address] 11/07/2024 10:15 AM EDT Office Visit [facility] MEDICINE [address] [place] [address] Ephraim Cox MD [address] [place] [address] 11/13/2024 10:00 AM EDT Office Visit [facility] MEDICINE [address] [place] [address] Florencia Lee CNM [address] [place] [address] documented as of this encounter Visit Diagnoses Not on filedocumented in this encounter Additional Health Concerns Assessment Noted Time PHQ-9 Depression Total Score: 24 022 3:27 PM EST documented as of this encounter Care Teams Network Administrator Relationship Specialty Start Date End Date Ephraim Cox MD [address] [place] [address] PCP - General Family Medicine 01/31/16 documented as of this encounter
[2024-08-17 14:44] LABS: Trichomonas vaginalis RNA NOT DETECTED (NOT DETECTED)
== END 2024-08-16 16:31 | disposition home or self-care (01) ==
LOC: HO.HHCLNP 16:30
PROVIDERS: Visit Provider Advanced Practice Midwife
DX: Z11.3 Encounter for screening for infections with a predominantly sexual mode of transmission (principal)
CPT/HCPCS: 87661

== ENCOUNTER 2024-09-18 10:37 | Outpatient (REF) | payer MEDICAID, SELFPAY ==
--- OUTSIDE RECORDS SUMMARY | 2024-09-18 12:03 | XMS_ITS | Encounter Summary ---
Author Organization [employer] Address [address] [facility] 7t [place] [address] Care Team Providers Care Kieselguhr Regenerator Operator Name Role Phone Name, Ephraim FERGUSON Primary Care Provider [phone] Encounter Details Date Type Department Care Team ([facility] st Contact Info) Description 05/08/2024 Orders Only [facility] CHC MED & PEDS [address] [place], [place] [phone] Kermit Rivera MD [address] [place] [address] Social History Tobacco Use Types Packs/Day Years [...] t he electric, gas, oil or water [employer] threatened to shut off services in your [...] Description 10/16/2024 3:00 PM EDT Office Visit [facility] ADULT DENTAL [address] [place] [address] Kem Negroaris [address] [place] [address] 11/07/2024 10:15 AM EDT Office Visit [facility] MEDICINE [address] [place] [address] Name, MD Ephraim [address] [place] [address] 11/13/2024 10:00 AM EDT Office Visit [facility] MEDICINE [address] [place] [address] Florencia Lee, LEOLA [address] [place] [address] documented as of this encounter Visit Diagnoses Not on filedocumented in this encounter Additional Health Concerns Assessment Noted Time PHQ-9 Depression Total Score: 24 05/13/2 022 3:27 PM EST documented as of this encounter Care Teams Kieselguhr Regenerator Operator Relationship Specialty Start Date End Date Name, MD Ephraim [address] [place] [phone] PCP - General Family Medicine 01/31/16 documented as of this encounter
--- OUTSIDE RECORDS SUMMARY | 2024-09-18 12:03 | XMS_ITS | Encounter Summary ---
Author Organization [employer] Address [address] [facility] 7t [place] [address] Care Team Providers Care Customer Service Technician Name Role Phone Name, Ephraim FERGUSON Primary Care Provider [phone] Reason for Visit * Reason Onset Date Comments Appointment Request 07/26/2024 Encounter Details Date Type Department Care Team ([facility] st Contact Info) Description 07/26/2024 Telephone [facility] MEDICINE [address] [place], [place] [phone] Name, MD Ephraim [address] [place] [address] Appointment Request Social History Tobacco Use Types [...] Description 10/16/2024 3:00 PM EDT Office Visit [facility] ADULT DENTAL [address] [place] [address] Sruthi, Renetta [address] [place] [address] 11/07/2024 10:15 AM EDT Office Visit [facility] MEDICINE [address] [place] [address] Ephraim Cox MD [address] [place] [address] 11/13/2024 10:00 AM EDT Office Visit [facility] MEDICINE [address] [place] [address] Floerncia Lee CNM [address] [place] [address] documented as of this encounter Visit Diagnoses Not on filedocumented in this encounter Additional Health Concerns Assessment Noted Time PHQ-9 Depression Total Score: 24 022 3:27 PM EST documented as of this encounter Care Teams Customer Service Technician Relationship Specialty Start Date End Date Ephraim Cox MD [address] [place] [phone] PCP - General Family Medicine 01/31/16 documented as of this encounter
--- OUTSIDE RECORDS SUMMARY | 2024-09-18 12:03 | XMS_ITS | Encounter Summary ---
Author Organization [employer] Address [address] [facility] 7t [place] [address] Care Team Providers Care Meat Dresser Name Role Phone Name, Ephraim FERGUSON Primary Care Provider [phone] Encounter Details Date Type Department Care Team (Latest Contact Info) Description 08/20/2021 Abstract [facility] CONVERSIONS Dental, Provider, DDS Social History [...] Description 10/16/2024 3:00 PM EDT Office Visit [facility] ADULT DENTAL [address] [place] [address] Renetta Negro [address] [place] [address] 11/07/2024 10:15 AM EDT Office Visit [facility] MEDICINE [address] [place] [address] Name, MD Ephraim [address] [place] [address] 11/13/2024 10:00 AM EDT Office Visit [facility] MEDICINE [address] [place] [address] Florencia Lee CNM [address] [place] [address] documented as of this encounter Visit Diagnoses Not on filedocumented in this encounter Care Teams Meat Dresser Relationship Specialty Start Date End Date Name, MD Ephraim [address] [place] [address] PCP - General Family Medicine 01/31/16 documented as of this encounter
--- OUTSIDE RECORDS SUMMARY | 2024-09-18 12:03 | XMS_ITS | Clinical Summary ---
Author Organization [employer] Address [address] [facility] 7t [place] [address] Care Team Providers Care Vascular Technologist Sonographer Name Role Phone Name, Ephraim FERGUSON Primary Care Provider [phone] Allergies Active Allergy Reactions Criticality Noted Date [...] mg PO 2 times daily 03/01/2024 Active Active Problems Problem Noted Date Diagnosed Date [...] intervention , Patient to reach out to [facility] team as needed, and Patient to engage [...] intervention , Patient to reach out to [facility] team as needed, and Patient to engage [...] intervention , Patient to reach out to [facility] team as needed, and Patient to engage in OP therapy Hypertrophy of tonsils 08/24/2018 Palpitations 08/24/2018 Syncope and collapse 08/24/2018 Acne vulgaris 11/05/2017 Epidermoid cyst 11/05/2017 Encounters Date Type Department Care Team Description 08/21/2024 Telephone [facility] [address] [place] [phone] Florencia Lee CNM Lab Orders; Results 08/16/2024 10:30 AM EDT Procedure Visit [facility] [place] [address] Florencia Lee CNM Screening examination for venereal disease (Primary Dx) 08/16/2024 Travel 08/09/2024 Population [facility] Risk Score [facility] () Department [address] [place] [phone] Provider, Population Health Generic 08/01/2024 Telephone [facility] [place] [address] Ephraim Cox MD No Show 08/01/2024 Telephone [facility] [place] [address] Florencia Lee CNM No Show 07/31/2024 Telephone [facility] [address] Florencia Lee CNM Insurance 07/27/2024 Telephone [place] [id number] Mansoor Potter [place] Appointment Request 07/26/2024 Telephone [place] [address] Ephraim Cox MD Appointment Request 07/20/2024 Orders Only [facility] [place] [id number] Jackie Miller RN 07/19/2024 3:30 PM EST Clinical Support [facility] Jose [facility] [place] [id number] Ade Wood, LEENA Chlamydia 07/19/2024 Travel from Last 3 Months Immunizations Name Administration [...] Description 10/16/2024 3:00 PM EDT Office Visit [facility] ADULT D[facility]AL [address] [place] [address] Kem Negroaris [address] [place] [address] 11/07/2024 10:15 AM EDT Office Visit [facility] [address] [place] [address] Name, MD Ephraim [address] [place] [address] 11/13/2024 10:00 AM EDT Office Visit [facility] [address] [place] [address] Florencia Lee, MARLIN [address] [place] [address] Health Maintenance Due Date Last Done Comments Alcohol/Substance Use Screening 2004 Family Planning (PISQ) 10/23/2007 Hepatitis B Vaccines (1 of 3 - 19+ 3-dose series) 10/23/2011 Dental Oral Exam 02/20/2022 08/20/2021 Dental Prophylaxis 02/20/2022 08/20/2021 Dental X-Ray: Bitewings 08/21/2022 08/20/2021 Depression Screening 05/13/2023 05/13/2022, 05/13/20 22 COVID-19 Vaccine ( season) 2024 04/15/2022, 07/29/2021, 03/10/2021, Additional history exists Influenza Vaccine (#1) 2024 , 07/31/2021, 02/11/2016 Dental X-Ray: Full Mouth 05/01/2024 04/30/2021 SDOH Screening 08/08/2024 08/09/2023 Tobacco Screening 08/16/2025 08/16/2024 Cervical Cancer Screening [...] Procedure Name Priority Date/Time Associated Diagnosis Comments TRICHOMONAS VAGINALIS RNA, QUALITATIVE, TMA Routine 08/16/2024 11:01 AM EDT Screening examination for venereal disease HIV ANTIBODY/ANTIGEN ([place] DPH) Routine 07/17/2024 HEPATITIS [...] Recently Relevant to Health Maintenance Results * Trichomonas RNA (Urine/Vaginal) (08/16/2024 11:01 AM EDT) Trichomas vaginalis RNA, QL, TMA NOT DETECTED NOT DETECTED [facility] Comment:For additional infor mation, please refer tohttp://education.THREAT STREAM/faq/Trichomonastma(This link is being provided for informational/educational purposes only.)THIS TEST WAS PERFORMED AT:[employer] [place] [id number] MAHARAJ MD Swab 08/16/2024 11:0 1 AM EDT 08/16/2024 4:31 PM EDT us Florencia Lee CNM LAB BODY FLUIDS AND STOOL S ORDERABLES Final Result [facility] [address] [place] [phone] * (ABNORMAL) Chlamydia/Gonorrhea Vaginal Swab ([place] DPH) (07/17/2024) Chlamydia Vaginal Swab Positive(A) Negative, Indeterminate, None Detected, Invalid, Specimen unsatisfactory for evaluation, Weakly Positive Gonorrhea Vaginal Swab Negative Negative, Indeterminate, None Detected, Invalid, Specimen unsatisfactory for evaluation, Weakly Positive Swab Vaginal structure / Unknown 07/17/2024 Result [facility] MD LAB MICROBIOLOGY - GENERA L ORDERABLES Final Result * Chlamydia/Gonorrhea Throat Swab ([place] DPH) (07/17/2024) Chlamydia Throat Swab Negative Gonorrhea Throat Swab Negative Swab 07/17/2024 Result [facility] MD LAB MICROBIOLOGY - GENERA L ORDERABLES Final Result * Syphilis Antibodies (DPH) (07/17/2024) Pathologist [facility] Syphilis Abs Nonreactive Borderline, Nonreactive, Weakly Reactive, Inconclusive, Specimen unsatisfactory for evaluation Blood Venous blood specimen / Unknown 07/17/2024 Result [facility] MD LAB BLOOD ORDERABLES Jennifer l Result * Hepatitis C Antibody ([place] DPH) (07/17/2024) Pathologist [facility] Hepatitis C Ab Nonreactive Blood 07/17/2024 Result [facility] MD LAB BLOOD ORDERABLES Jennifer l Result * HIV Ab/Ag ([place] DPH) (07/17/2024) Pathologist [facility] HIV Ag/Ab Nonreactive Blood 07/17/2024 Result [facility] MD LAB BLOOD ORDERABLES Jennifer l Result * Pap with NG,CT,Trich (08/18/2023 9:59 AM EDT) Pathologist [facility] Trichomonas (NAAT) NOT DETECTED NOT DETECTED [facility] Comment:The analytical perfo rmance characteristics of thisassay have been determined by [facility]. Themodifications have not been cleared or approved bythe FDA. This assay has been validated pursuant to theCLIA regulations and is used for clinical purposes.For additional information, please refer tohttp://[employer].THREAT STREAM/faq/Trichomonastma(This link is being provided for information/educational purposes only.)THIS TEST WAS PERFORMED AT:[employer] [address] [id number] MAHARAJ MD CTNG Ref Lab NOT DETECTED NOT DETECTED [facility] NG Ref Lab NOT DETECTED NOT DETECTED [facility] Pap Vial Vaginal structure / Unknown 08/18/2023 9:59 AM EDT 08/19/2023 6:30 AM EDT Florencia Lee CN LAB CYTOLOGY ORDERABLES F inal Result [facility] [address] [place] [phone] * HPV mRNA E6/E7 w/Reflex to HPV Genotypes 16, 18/45 (08/18/2023 9:59 AM EDT) HPV nRNA E6/E7 Not Detected Not Detected [facility] Comment:Methodology: Transcr iption-Mediated AmplificationThis assay detects E6/E7 viral messenger RNA (mRNA) from 14high-risk HPV types (16,18,31,33,35,39,45,51,52,56,58,59,66,68).Cervical sources are required for HPV testing.If a vaginal source from a patient who has had atotal hysterectomy with removal of cervix wassubmitted, please contact the testing laboratoryfor alternative testing options.For additional information, please refer tohttp://[employer].THREAT STREAM/faq/SXR791g8(This link if provided for information/educational purposes only.)THIS TEST WAS PERFORMED AT:[employer] [address] [id number] MAHARAJ MD HPV mRNA E6/E7 TNP [facility] HPV 16 RNA TNP [facility] HPV 18/45 RNA TNP [facility] 08/18/2023 9:59 AM EDT 08/19/2023 6:30 AM EDT us Florencia Lee CNM LAB CYTOLOGY ORDERABLES F inal Result [facility] [address] [place] [phone] from Last 3 Months or Most Recently Relevant to Health Maintenance Insurance [facility] C3 HSN FULL DENTAL-[facility] MEDICAID STAND ADULT DENTAL - HSN FULL (MEDICAID) Care Teams Vascular Technologist Sonographer Relationship Specialty Start Date End Date Name, MD Ephraim [address] [place] [phone] PCP - General Family Medicine 01/31/16
--- OUTSIDE RECORDS SUMMARY | 2024-09-18 12:03 | XMS_ITS | Encounter Summary ---
Author Organization [employer] Address [address] [facility] 7t [place] [address] Care Team Providers Care Instrument And Controls Technician Name Role Phone Name, Ephraim FERGUSON Primary Care Provider [phone] Encounter Details Date Type Department Care Team (Late st Contact Info) Description 05/13/2022 Abstract [facility] [address] [place], [place] [phone] Name, MD Ephraim [address] [place] [address] Social History Tobacco Use Types Packs/Day Years [...] Description 10/16/2024 3:00 PM EDT Office Visit [facility] ADULT DENTAL [address] [place], [place] [phone] Renetta Negro [address] [place], [place] [phone] 11/07/2024 10:15 AM EDT Office Visit [facility] [place] [address] Name, MD Ephraim [place] [address] 11/13/2024 10:00 AM EDT Office Visit [facility] [place] [address] Florencia Lee CN [address] [place] [address] documented as of this encounter Visit Diagnoses Not on filedocumented in this encounter Additional Health Concerns Assessment Noted Time PHQ-9 Depression Total Score: 24 022 3:27 PM EST documented as of this encounter Care Teams Instrument And Controls Technician Relationship Specialty Start Date End Date Name, MD Ephraim [place] [address] PCP - General Family Medicine 01/31/16 documented as of this encounter
[2024-09-18 12:34] LABS: HBc Num1 0.08 S/CO (0.00-0.79); HBsAGNum1 0.47 S/CO (0.00-0.99); HIV AB/AG Nonreactive (Nonreactive); HIV Num 1 0.07 S/CO (0.00-0.99); Hepatitis B Core Antibody Nonreactive (Nonreactive); Hepatitis B Surface Antigen Negative (Negative); ~Hepatitis B Surface Antibody NONREACTIVE (Nonreactive)
[2024-09-18 12:36] LABS: Syphilis Screen Nonreactive (Nonreactive)
== END 2024-09-18 10:38 | disposition home or self-care (01) ==
LOC: HO.HHCL 10:37
PROVIDERS: Visit Provider Advanced Practice Midwife
DX: Z11.3 Encounter for screening for infections with a predominantly sexual mode of transmission (principal); Z11.4 Encounter for screening for human immunodeficiency virus [HIV]
CPT/HCPCS: 36415; 86704; 86706; 86780; 87340; 87389

== ENCOUNTER 2024-10-06 14:17 | Outpatient (REF) | payer MEDICAID, SELFPAY ==
[2024-10-06 18:08] LABS: CT PCR NOT DETECTED (Not Detect.); NG PCR NOT DETECTED (Not Detect.)
== END 2024-10-06 14:18 | disposition home or self-care (01) ==
LOC: HO.HHCL 14:17
PROVIDERS: Visit Provider Advanced Practice Midwife
DX: Z11.3 Encounter for screening for infections with a predominantly sexual mode of transmission (principal)
CPT/HCPCS: 87491; 87591

== ENCOUNTER 2024-11-07 11:06 | Outpatient (REF) | payer MEDICAID, SELFPAY ==
--- OUTSIDE RECORDS SUMMARY | 2024-11-07 12:46 | XMS_ITS | Encounter Summary ---
Author Organization [employer] Address [address] [facility] 7t [place] [address] Care Team Providers Care Hoop Expander Name Role Phone Name, Ephraim FERGUSON Primary Care Provider [phone] Reason for Visit * Reason Onset Date Comments Appointment Request 07/26/2024 Encounter Details Date Type Department Care Team ([facility] st Contact Info) Description 07/26/2024 Telephone [facility]INE [address] [place], [place] [phone] Name, MD Ephraim [address] [place] [address] Appointment Request Social History Tobacco Use Types [...] Care Team (Late st Contact Info) Description 11/13/2024 10:00 AM EDT Office Visit [facility] MEDICINE [address] [place] [address] Florencia Lee CNM [address] [place] [address] documented as of this encounter Visit Diagnoses Not on filedocumented in this encounter Additional Health Concerns Assessment Noted Time PHQ-9 Depression Total Score: 24 022 3:27 PM EST documented as of this encounter Care Teams Hoop Expander Relationship Specialty Start Date End Date Name, MD pEhraim [address] [place] [address] PCP - General Family Medicine 01/31/16 documented as of this encounter
[2024-11-07 13:34] LABS: TSH reflex Free T4 1.39 uIU/mL (0.32-4.0)
[2024-11-07 13:41] LABS: HBS Num1 0.33 mIU/mL (0-7.99); HBsAGNum1 0.35 S/CO (0.00-0.99); HIV AB/AG Nonreactive (Nonreactive); HIV Num 1 0.09 S/CO (0.00-0.99); Hepatitis B Surface Antigen Negative (Negative); ~HepC Num1 0.17 S/CO (0.00-0.79); ~Hepatitis B Surface Antibody NONREACTIVE (Nonreactive); ~Hepatitis C Antibody Nonreactive (Nonreactive)
[2024-11-07 21:11] LABS: Bacterial Vaginosis PCR POSITIVE (Negative); Candida Group PCR NOT DETECTED (Not Detect); Candida glab krusei PCR NOT DETECTED (Not Detect); Trichomonas vaginalis PCR NOT DETECTED (Not Detect)
[2024-11-07 21:48] LABS: CT PCR NOT DETECTED (Not Detect.); NG PCR NOT DETECTED (Not Detect.)
[2024-11-08 10:18] LABS: RPR Rapid Plasma Reagin NON-REACTIVE (NON-REACTIVE)
== END 2024-11-07 11:07 | disposition home or self-care (01) ==
LOC: HO.HHCL 11:06
PROVIDERS: PCP Internal Medicine Geriatric Medicine; Visit Provider Internal Medicine Geriatric Medicine
DX: Z11.3 Encounter for screening for infections with a predominantly sexual mode of transmission (principal); Z11.4 Encounter for screening for human immunodeficiency virus [HIV]; L65.9 Nonscarring hair loss, unspecified
CPT/HCPCS: 36415; 81515; 84443; 86592; 86706; 86803; 87340; 87389; 87491; 87591

== ENCOUNTER 2025-01-19 11:55 | Outpatient (REF) | payer MEDICAID, SELFPAY ==
--- OUTSIDE RECORDS SUMMARY | 2025-01-19 11:00 | XMS_ITS | Encounter Summary ---
Author Organization [employer] Address [address] [place] [address] [address] [place] [address] Care Team Providers Care Administrative Liaison Name Role Phone NameEphraim MD Primary Care Provider [phone] Reason for Referral * Consultation (Routine) - Authorized Specialty Diagnoses / Procedures Referred By Allen costa Referred To Contact Behavioral Health Diagnoses Situational stress Anxiety Ephraim Cox MD [address] [place] [address] Phone: tel: fax: Referral ID Status Reason Start Date Expiration Date Visits Requested Visits Authorized [id number] Authorized Specialty Services Required 01/19/2025 01/19/2026 1 1 Reason for Visit * Reason Comments Genital Herpes Encounter Details Date Type Department Care Team (Late st Contact Info) Description 01/19/2025 11:00 AM EDT Office Visit [facility] MED[facility]INE [address] [place] [phone] Ephraim Cox MD [address] [place] [phone] HSV-2 infection (Primary Dx); Routine screening for STI (sexually transmitted infection); Situational stress; Dysuria; Anxiety Social History Tobacco Use Types Packs/Day Years Used Date Smoking Tobacco: Never Passive Smoke Exposure: Never Smokeless Tobacco: Never Tobacco Cessation:Counseling Given: Not Answered Alcohol Use Standard Drinks/Week Comments Not Currently 0 (1 standard drink = 0.6 oz pur e alcohol) Occassionally Alcohol Answer Date Recorded How often do you have a drink containing alcohol ? 0 01/19/2025 How many drinks containing a lcohol do you have on a typical day when you are drinking? 0 01/19/2025 How often do you have six or more drinks on one occasion? 0 01/19/2025 Depression Answer Date Recorded Patient Health Questionnaire-9 Score 6 11/07/2024 Patient Health Questionnaire-9 Score 6 11/07/2024 Last PHQ-9: Questionnaire Data Not on file 0 11/07/2024 Housing Stability Answer Date Recorded What is your housing situation today? I have dennis eason 10/30/[address] you li ve. Do you have problems with any of the following? None of the above 10/30/2024 Food Insecurity Answer Date Recorded Within the past 12 months, y ou worried that your food would run out before you got money to buy more: Never True 10/30/2024 Within the past 12 months,th e food you bought just didn't last and you didn't have enough money to get more: Never True Transportation Answer Date Recorded In the past 12 months, has l ack of transportation kept you from medical appts, meetings, work or from getting things needed for daily living? No 10/30/2024 Utilities Answer Date Recorded In the past 12 months, has t he electric, gas, oil or water company threatened to shut off services in your home? No 10/30/2024 Depression Answer Date Recorded Patient Health Questionnaire-2 Score 0 11/07/2024 Internet Access Answer Date Recorded Internet Access Q1 Yes 10/30/2024 Internet Access Q2 Not on file 10/30/2024 Comments No Sex and Gender Information Value Date Recorded Sex Assigned at Female 03/16/2022 10:30 AM EDT Legal Sex Female 10:30 AM EDT Gender Identity Female 03/16/2022 10:30 AM EDT Sexual Orientation Straight 03/16/2022 10 :30 AM EDT documented as of this encounter Last Filed Vital Signs Vital Sign Reading Time Taken Comments Blood Pressure 117/72 01/19/2025 11:17 AM EDT Pulse 76 01/19/2025 11:17 AM EDT Temperature 37 C (98.6 F) 01/19/2025 11:17 AM EDT Respiratory Rate 18 01/19/2025 11:17 AM EDT Oxygen Saturation 99% 01/19/2025 11:17 AM EDT Inhaled Oxygen Concentration - - Weight 68.1 kg (150 lb 3.2 oz) 01/19/2025 11:17 AM EDT Height 162.6 cm (5' 4 ) 01/19/2025 11:17 AM EDT Body Mass Index 25.78 01/19/2025 11:17 AM EDT documented in this encounter Progress Notes * Ephraim Cox MD - 01/19/2025 11:00 AM EDT Subjective Patient ID: Anna Hall is a 34 y.o. female who presents for Genital Herpes. Patient comes for sick visit. She is very anxious. She was evaluated in urgent care facility last week because of a skin lesion on the buttock area. The patient was concerned about the possibility ofhaving herpes. She had a herpes culture that was indeed positive for HSV-2. The patient thinks she contracted this from her ex-boyfriend. She never had similar symptoms in the past and she has not been sexually active since November. The patient tells me that she is not sleeping well, she feels extremely resentful. She is not suicidal or homicidal. She requested a medication to help her sleep and referral to behavioral health. She tells me she was prescribed valacyclovir at [facility] and that her skin lesion has resolved by the time of her visit today Review of Systems Constitutional: Negative for chills and fever. HENT: Negative for sore throat. Respiratory: Negative for cough, shortness of breath and wheezing. Cardiovascular: Negative for chest pain, palpitations and leg swelling. Gastrointestinal: Negative for abdominal pain. Genitourinary: Negative for vaginal discharge. Psychiatric/Behavioral: The patient is nervous/anxious. Objective Vitals: 01/19/25 1117 BP: 117/72 BP Location: Left arm Patient Position: Sitting BP Cuff Size: Adult Pulse: 76 Resp: 18 Temp: 98.6 ??F (37 ??C) TempSrc: Temporal SpO2: 99% Weight: 150 lb 3.2 oz (68.1 kg) Height: 5' 4 (1.626 m) Physical Exam Constitutional: General: She is not in acute distress. Cardiovascular: Rate and Rhythm: Normal rate and regular rhythm. Pulmonary: Effort: Pulmonary effort is normal. No respiratory distress. Assessment/Plan Diagnoses and all orders for this visit: HSV-2 infection Comments: Patient herpes outbreak resolved with a course of valacyclovir prescribed elsewhere. Overall her symptoms were mild and her skin lesions resolved promptly and she tells me they were improving by the time she went to urgent care. She is recommended to use condoms for STI prevention I will repeat her STI testing I recommended melatonin for sleep I will refer to behavioral health I explained that herpes might be recurrent but I cannot predict how many outbreaks she will get in the future, she is encouraged to call for recurrent symptoms, I did not prescribe suppressive therapy at this point Orders: - Chlamydia/N. Gonorrhoeae, PCR, Urine - Urinalysis, Complete, with Reflex to Culture; Future Routine screening for STI (sexually transmitted infection) - HIV-1/2 Antigen and Antibodies, Fourth Generation, with Reflexes; Future - RPR (Monitor) with Reflex to Titer; Future - Hepatitis B surface antigen, EIA; Future - Hepatitis C Antibody with Reflex to HCV, RNA, Quantitative, Real-Time PCR; Future - Chlamydia/N. Gonorrhoeae RNA, TMA, Vaginal Situational stress - melatonin 5 MG tablet; Use one tablet at bedtime - Referral to Behavioral Health; Future Dysuria - POCT Urinalysis Anxiety - Referral to Behavioral Health; Future Future Appointments Date Time Provider Department Center 04/03/2025 10:45 AM Ephraim Cxo MD MEDICINE [facility] documented in this encounter Plan of Treatment Upcoming Encounters Date Type Department Care Team (Late st Contact Info) Description 04/03/2025 10:45 AM EST Office Visit [facility] MEDICINE [address] [place] [phone] Ephraim Cox MD [address] [place] [phone] Scheduled Orders Name Type Priority Associated Diagnoses Orde r Schedule Chlamydia/N. Gonorrhoeae, PCR, Urine Lab Routine HSV-2 infection Ordered: 01/19/2025 Urinalysis, Complete, with Reflex to Culture Lab Routine HSV-2 infection Expected: 01/19/2025 (Approximate), Expires: 01/19/2026 HIV-1/2 Antigen and Antibodies, Fourth Generation, with Reflexes Lab Routine Routine screening for STI (sexually transmitted infection) Expected: 01/19/2025 (Approximate), Expires: 01/19/2026 RPR (Monitor) with Reflex to Titer Lab Routine Routine screening for STI (sexually transmitted infection) Expected: 01/19/2025, Expires: 01/19/2026 Hepatitis B surface antigen, EIA Lab Routine Routine screening for STI (sexually transmitted infection) Expected: 01/19/2025 (Approximate), Expires: 01/19/2026 Hepatitis C Antibody with Reflex to HCV, RNA, Quantitative, Real-Time PCR Lab Routine Routine screening for STI (sexually transmitted infection) Expected: 01/19/2025, Expires: 01/19/2026 Chlamydia/N. Gonorrhoeae RNA, TMA, Vaginal Microbiology Routine Routine screening for STI (sexually transmitted infection) Ordered: 01/19/2025 Scheduled Referrals Name Type Priority Associated Diagnoses Order Schedule Referral to Behavioral Health Outpatient Referral Routine Situational stress Anxiety Expected: 01/19/2025 (Approximate), Expires: 07/19/2026 documented as of this encounter Procedures Procedure Name Priority Date/Time Associated Diagnosis Comments POCT URINALYSIS DIPSTICK Routine 01/19/2025 11:31 AM EDT Dysuria documented in this encounter Results * (ABNORMAL) POCT Urinalysis (01/19/2025 11:31 AM EDT) Color, UA Yellow Clarity, UA Clear Glucose, UA Negative Bilirubin, UA Negative Ketones, UA Negative Spec Grav, UA 1.030 Blood, UA Positive(A) Negative, None Detected Comment:trace-intact pH, UA 5.5 Protein, UA Negative Urobilinogen, UA 0.2 Leukocytes, UA Many(A) Negative, Rare, Trace Comment:small Nitrite, UA Negative Negative, None Detected Appearance, UA yellow [employer] Media Lot # [id number] Lot# Expiration Date [id number] Urine 01/19/2025 11:3 1 AM EDT us Ephraim Cox MD POINT OF CARE TEST ENTER/EDIT OR DERABLES Final Result documented in this encounter Visit Diagnoses Diagnosis HSV-2 infection- Primary Herpes simplex without mention of complication Routine screening for STI (sexually transmitted infection) Screening examination for venereal disease Situational stress Other psychological or physical stress, not elsewhere classified Dysuria Anxiety Anxiety state, unspecified documented in this encounter Additional Health Concerns Assessment Noted Time PHQ-9 Depression Total Score: 6 11/08/19 25 10:52 AM EDT documented as of this encounter Care Teams Administrative Liaison Relationship Specialty Start Date End Date Name, MD Ephraim [address] [place] [address] PCP - General Family Medicine 01/31/16 documented as of this encounter
--- OUTSIDE RECORDS SUMMARY | 2025-01-19 12:38 | XMS_ITS | Encounter Summary ---
Author Organization [employer] Address 75 [facility] 7t [place] [address] Care Team Providers Care Monorail Car Operator Name Role Phone Name, Ephraim FERGUSON Primary Care Provider [phone] Encounter Details Date Type Department Care Team (Latest Contact Info) Description 01/19/2025 Travel Social History Tobacco Use Types Packs/Day [...] Description 04/03/2025 10:45 AM EST Office Visit [facility] MEDICINE [address] [place] [phone] Name, MD Ephraim [address] [place] [phone] documented as of this encounter Visit Diagnoses Not on filedocumented in this encounter Additional Health Concerns Assessment Noted Time PHQ-9 Depression Total Score: 6 11/08/19 25 10:52 AM EDT documented as of this encounter Care Teams Monorail Car Operator Relationship Specialty Start Date End Date NameEphraim MD [address] [place] [address] PCP - General Family Medicine 01/31/16 documented as of this encounter
--- OUTSIDE RECORDS SUMMARY | 2025-01-19 12:38 | XMS_ITS | Encounter Summary ---
Author Organization [employer] Address 75 [facility] 7t [place] [address] Care Team Providers Care Room Attendant Name Role Phone Name, Ephraim FERGUSON Primary Care Provider [phone] Reason for Visit * Reason Onset Date Comments Appointment Request 07/26/2024 Encounter Details Date Type Department Care Team ([facility] st Contact Info) Description 07/26/2024 Telephone [facility] MEDICINE [address] [place], [place] [phone] Name, MD Ephraim [address] [place] [address] Appointment Request Social History Tobacco Use Types [...] Description 04/03/2025 10:45 AM EST Office Visit [facility] MEDICINE [address] [place] [address] Name, MD Ephraim [address] [place] [address] documented as of this encounter Visit Diagnoses Not on filedocumented in this encounter Additional Health Concerns Assessment Noted Time PHQ-9 Depression Total Score: 24 022 3:27 PM EST documented as of this encounter Care Teams Room Attendant Relationship Specialty Start Date End Date Name, MD Ephraim [address] [place] [address] PCP - General Family Medicine 01/31/16 documented as of this encounter
--- OUTSIDE RECORDS SUMMARY | 2025-01-19 12:38 | XMS_ITS | Clinical Summary ---
Author Organization [employer] Address [address] [facility] [address] [place] [address] Care Team Providers Care Wire Walker Name Role Phone Name, Ephraim FERGUSON Primary Care Provider [phone] Allergies Active Allergy Reactions Criticality Noted Date Comments Aspirin 06/26/2016 Other reaction(s): rash Medications * This document contains information received from the source organization and may not represent a complete record from that organization. SUMAtriptan (Imitrex) 25 MG tablet take 1 tablet by oral route after onset of migraine; may repeat after 2 hours if headache returns,not to exceed 200mg in 24hrs 08/26/2020 Active melatonin 5 MG tabletIndicatio ns:Situational stress Use one tablet at bedtime 30 tablet 1 01/19/2025 Active valACYclovir (Valtrex) 500 MG tablet Take 1 tablet by mouth 2 times daily. 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 Recurrent major depressive disorder 05/12/2022 Assessment & [...] intervention , Patient to reach out to [facility] team as needed, and Patient [...] intervention , Patient to reach out to [facility] team as needed, and Patient to engage in OP therapy Hypertrophy of tonsils 08/24/2018 Acne vulgaris 11/05/2017 Epidermoid cyst 11/05/2017 Resolved Problems Problem Noted Date Diagnosed Date Resolved Date Acute cystitis without hematuria 04/26/2024 11/07/2024 Assessment & Plan (04/26/2024 5:28 PM EST): Symptoms started 1 week ago, have been worsening, denied fever/chills, complains of dysuria/frequency/urgency, on examination suprapubic tenderness noted Will start on nitrofurantoin, told to remain well hydrated, urine culture sent, er precautions reviewed Breast pain, right 01/10/2024 Subareolar mass of right breast 01/10/2024 11/07/2024 Assessment & Plan (01/10/2024 11:12 AM EDT): Repeat imaging due ( ordered 09/07). Referral to surgeon as pt endorses worsening tenderness Aware of s/s to report Family problems 05/12/2023 11/07/2024 Assessment & Plan (05/14/2023 4:22 PM EST): [...] intervention , Patient to reach out to [facility] team as needed, and Patient to engage in OP therapy Palpitations 08/24/2018 11/07/2024 Syncope and collapse 08/24/2018 025 Encounters Date Type Department Care Team Description 01/19/2025 11:00 AM EDT Office Visit [facility] [address] [place] [address] Name, MD Ephraim HSV-2 infection (Primary Dx); Routine screening for STI (sexually transmitted infection); Situational stress; Dysuria; Anxiety 01/19/2025 Travel 01/18/2025 Telephone [facility] [address] [place] [address] Ephraim Cox MD Chart Prep 01/17/[address] [address] Ephraim Cox MD Nurse Triage 01/05/[address] [address] Mansoor Potter [place] oct recalls 11/08/2024 Results Follow-Up [address] [address] Ephraim Cox MD Chlamydia/N. Gonorrhoeae RNA, TMA, Urogenitial, Bacterial Vaginosis Panel, TSH W/Reflex to FT4, Additional followed-up results: 4 11/07/2024 10:15 AM EDT Office Visit [address] [address] Ephraim Cox MD Hair loss (Primary Dx); Routine screening for STI (sexually transmitted infection) 11/07/2024 Travel 11/06/[address] [address] Mansoor Potter [place] chart prep 10/30/2024 Patient Outreach [facility] [address] [place] [address] Ephraim Cox MD Pre-visit Planning (SDOH negative, Tobacco screening negative.) from Last 3 Months Immunizations Immunization Administration Dates Next Due DTaP 07/17/1997, 4,05/29/1993,1992,01/08/1993 Influenza injectable quadriv alent IIV4 with preservative 02/11/2016 Influenza injectable quadriv alent preservative free 02/18/2022,07/31/2021 Pfizer Covid-19 Vaccine 12+ maddie-sucrose (Latif Cap) 07/29/2021 Tdap 07/31/2021 Family History Medical History Relation Name Comments Diabetes Father Hyperlipidemia Father Skin cancer Mother Relation Name Status Comments Father Mother Social History Tobacco Use Types Packs/Day Years [...] Mass Index 25.78 01/19/2025 11:17 AM EDT Plan of Treatment Upcoming Encounters Date Type Department Care Team (Late st Contact Info) Description 04/03/2025 10:45 AM EST Office Visit [facility] [address] [place], [place] [phone] Name, MD Ephraim [address] [place] [address] Health Maintenance Due Date Last Done Comments Family Planning (PISQ) 10/23/2007 HPV Vaccines (1 - 3-dose series) 10/23/2007 Hepatitis B Vaccines (1 of 3 - 19+ 3-dose series) 10/23/2011 Dental Oral Exam 02/20/2022 08/20/2021 Dental Prophylaxis 02/20/2022 08/20/2021 Dental X-Ray: Bitewings 08/21/2022 08/20/2021 Dental X-Ray: Full Mouth 05/01/2024 04/30/2021 COVID-19 Vaccine ( season) 2025 04/15/2022, 07/29/2021, 03/10/2021, Additional history exists Influenza Vaccine (#1) 2025 , 07/31/2021, 02/11/2016 SDOH Screening 10/30/2025 10/30/2024 Depression Screening 11/07/2025 11/07/2024, 11/08/19 25 Disability Screening 11/07/2025 11/07/2024 Alcohol/Substance Use Screening 01/19/2026 01/19/2025 Tobacco Screening 01/19/2026 01/19/2025 Cervical Cancer Screening 08/17/2026 HPV/Cotest 08/17/2026 08/18/2023 Pap Smear 08/17/2026 08/18/2023, 08/18/2023 DTaP/Tdap/Td Vaccines (7 - Td or Tdap) 08/01/2031 07/31/2021, 07/17/1997, 01/22/1994, Additional history exists Zoster Vaccines (1 of 2) 2042 RSV Patients and Patients Aged 60 years or older (1 - 1-dose 75+ series) 10/23/2067 HIV Screening Completed 11/07/2024, 05/0 09/2024, 07/17/2024, Additional history exists Hepatitis C Screening Completed 11/07/2024 , 07/17/2024, 07/31/2021, Additional history exists HIB Vaccines Aged Out No longer eligi ble based on patient's age to complete this topic Hepatitis A Vaccines Aged Out No long er eligible based on patient's age to complete this topic IPV Vaccines Aged Out No longer eligi ble based on patient's age to complete this topic Meningococcal B Vaccine Aged Out No l onger eligible based on patient's age to complete this topic Meningococcal Vaccine Aged Out No don marline eligible based on patient's age to complete this topic Pneumococcal Vaccine: Pediatrics (0 to 5 Years) and At-Risk Patients (6 to 49) Years Aged Out No longer eligible based on patient's age to complete this topic RSV under 20 months Aged Out No longe r eligible based on patient's age to complete this topic Rotavirus Vaccines Aged Out No longer eligible based on patient's age to complete this topic Procedures Procedure Name Priority Date/Time Associated Diagnosis Comments POCT URINALYSIS DIPSTICK Routine 01/19/2025 11:31 AM EDT Dysuria RPR (MONITOR) W/REFL TITER Routine 11/07/2024 11:09 AM EDT Routine screening for STI (sexually transmitted infection) HEPATITIS B SURFACE ANTIBODY, QUALITATIVE Routine 11/07/2024 11:09 AM EDT Routine screening for STI (sexually transmitted infection) HEPATITIS B SURFACE ANTIGEN, EIA Routine 11/07/2024 11:09 AM EDT Routine screening for STI (sexually transmitted infection) HEPATITIS C AB W/REFL TO HCV RNA, QN, PCR Routine 11/07/2024 11:09 AM EDT Routine screening for STI (sexually transmitted infection) HIV 1/2 ANTIGEN/ANTIBODY, FOURTH GENERATION W/RFL Routine 11/07/2024 11:09 AM EDT Routine screening for STI (sexually transmitted infection) TSH W/REFLEX TO FT4 Routine 11/07/2024 1 1:09 AM EDT Hair loss BACTERIAL VAGINOSIS PANEL Routine 11/07/2024 10:40 AM EDT Routine screening for STI (sexually transmitted infection) CHLAMYDIA/N. GONORRHOEAE RNA, TMA, UROGENITAL Routine 11/07/2024 10:40 AM EDT Routine screening for STI (sexually transmitted infection) HPV MRNA E6/E7 REFLEX TO HPV 16, [...] Relevant to Health Maintenance Results * (ABNORMAL) POCT Urinalysis (01/19/2025 11:31 [...] Media Lot # [id number] Lot# Expiration Date 33 Urine 01/19/2025 11:3 1 AM EDT us Ephraim Cox MD POINT OF CARE TEST ENTER/EDIT OR DERABLES Final Result * TSH W/Reflex to FT4 (11/07/2024 11:09 AM EDT) Pathologist [facility] TSH reflex Free T4 1.39 0.32 - 4.0 uIU/mL [facility] Blood Venous blood specimen / Unknown 11/07/2024 11:09 AM EDT 11/07/2024 12:56 PM EDT us Ephraim Cox MD LAB BLOOD ORDERABLES Final Resul t Performing Organization Address [facility]/ZIP Co de Phone Number [facility] [address] [place] [phone] * Hepatitis C Antibody with Reflex to HCV, RNA, Quantitative, Real-Time PCR (11/07/2024 11:09 AM EDT) [facility] Hepatitis C Antibody Nonreactive Nonreactive [facility] Comment:Antibodies to HCV no t detected; does not exclude early acuteHCV infection. Blood Venous blood specimen / Unknown 11/07/2024 11:09 AM EDT 11/07/2024 12:56 PM EDT us Ephraim Cox MD LAB BLOOD ORDERABLES Final Resul t Performing Organization Address [facility]/ZIP Co de Phone Number [facility] [address] [place] [phone] * Hepatitis B surface antigen, EIA (11/07/2024 11:09 AM EDT) Pathologist [facility] Hepatitis B Surface Ag Negative Negative [facility] Blood Venous blood specimen / Unknown 11/07/2024 11:09 AM EDT 11/07/2024 12:56 PM EDT us Ephraim Cox MD LAB BLOOD ORDERABLES Final Resul t Performing Organization Address [facility]/ZIP Co de Phone Number [facility] [address] [place] [phone] [phone] * RPR (Monitor) with Reflex to??Titer (11/07/2024 11:09 AM EDT) RPR (Monitor) w/Refl Titer NON-REACTI VE NON-REACT VIPIN [facility] Comment:THIS TEST WAS PERFOR MED AT:[employer] [place] [phone] MAHARAJ MD Rapid Plasma Reagin Ab Titer TNP [facility] Blood Venous blood specimen / Unknown 11/07/2024 11:09 AM EDT 11/07/2024 12:56 PM EDT Ephraim Cox MD LAB BLOOD ORDERABLES Final Resul t Performing Organization Address [facility] Co de Phone Number [facility] [address] [place] [phone] [phone] * HIV-1/2 Antigen and Antibodies, Fourth Generation, with Reflexes (11/07/2024 11:09 AM EDT) HIV AB/AG Nonreactive Nonreactive [facility] Comment:HIV-1 p24 Ag and/or HIV-1/HIV-2 Ab not detected.A test result that is nonreactive does not exclude thepossibility of exposure to or infection with HIV-1 and/orHIV-2. Nonreactive results in this assay for individualswith prior exposure to HIV-1 and/or HIV-2 may be due toantigen and antibody levels that are below the limit ofdetection of this assay.The [employer] HIV Ag/Ab Combo assay result andsupplemental assay results should be interpreted inconjunction with the patient's clinical presentation,history and other laboratory results. If the results areinconsistent with clinical evidence, additional testing issuggested to confirm the result. Blood Venous blood specimen / Unknown 11/07/2024 11:09 AM EDT 11/07/2024 12:56 PM EDT us Ephraim Cox MD LAB BLOOD ORDERABLES Final Resul t Performing Organization Address [facility]/ZIP Co de Phone Number [facility] [address] [place] [phone] * Hepatitis B Surface Antibody, Qualitative (11/07/2024 11:09 AM EDT) ~Hepatitis B Surface Antibody NONREACTIVE Nonreactive [facility] Comment:Nonreactive: < 8.00 mIU/mL Blood Venous blood specimen / Unknown 11/07/2024 11:09 AM EDT 11/07/2024 12:56 PM EDT us Ephraim Cox MD LAB BLOOD ORDERABLES Final Resul t Performing Organization Address [facility] Co de Phone Number [facility] [address] [place] [phone] * (ABNORMAL) Bacterial Vaginosis Panel (11/07/2024 10:40 AM EDT) TRICHOMONAS VAGINALIS DETECTION BY PCR NOT DETECTED Not Detect [facility] BACTERIAL VAGINOSIS DETECTION BY PCR POSITIVE(A) Negative [facility] Comment:The BV organism targ ets of the Xpert Xpress MVP test can becommensal in women; Xpert Xpress MVP positive results forbacterial vaginosis should be considered in conjunction withother clinical and patient information to determine thedisease status. Organisms that are not detected by the XpertXpress MVP test have also been reported to be associatedwith BV and aerobic vaginitis.The Xpert Xpress MVP test performance has not been evaluatedin patients under the age of 14. ALEJAN[employer]A [employer] DETECTION BY PCR NOT DETECTED Not Detect [facility] Alejandra glab krusei PCR NOT DETECTED Not Detect [facility] Swab Vaginal structure / Unknown 11/07/2024 10:40 AM EDT 11/07/2024 4:21 PM EDT us Ephraim Cox MD LAB MICROBIOLOGY - GENERAL ORDER ASHLEY Final Result [facility] [address] [place] [phone] [phone] * Chlamydia/N. Gonorrhoeae RNA, TMA, Urogenitial (11/07/2024 10:40 AM EDT) CT PCR NOT DETECTED Not Detect. [facility] Comment:A not detected test result does not exclude the possibilityof infection because test results can be affected byimproper specimen collection, concurrent antibiotic therapy,or the number of organisms in the specimen which may bebelow the sensitivity of the test. As with many diagnostictests, results from the Xpert CT/NG assay should beinterpreted in conjunction with other laboratory andclinical data available to the clinician.Xpert CT/NG performance has not been evaluated in patientsless than 14 years of age. The assay should not be used forthe evaluationof suspected sexual abuse or for other medico-legalindications. Additional testing is recommended in anycircumstance when false positive or false negative resultscould lead to adverse medical, social or psychologicalconsequences. NG PCR NOT DETECTED Not Detect. [facility] Comment:A not detected test result does not exclude the possibilityof infection because test results can be affected byimproper specimen collection, concurrent antibiotic therapy,or the number of organisms in the specimen which may bebelow the sensitivity of the test. As with many diagnostictests, results from the Xpert CT/NG assay should beinterpreted in conjunction with other laboratory andclinical data available to the clinician.Xpert CT/NG performance has not been evaluated in patientsless than 14 years of age. The assay should not be used forthe evaluationof suspected sexual abuse or for other medico-legalindications. Additional testing is recommended in anycircumstance when false positive or false negative resultscould lead to adverse medical, social or psychologicalconsequences. Swab Vaginal structure / Unknown 11/07/2024 10:40 AM EDT 11/07/2024 4:21 PM EDT Narrative [facility] - 11/07/2024 9:48 PM EDT Vaginal Ephraim Cox MD LAB MICROBIOLOGY - GENERAL ORDER ASHLEY Final Result Performing Organization Address [facility]/ZIP Co de Phone Number [facility] [address] [place] [phone] * Pap with NG,CT,Trich (08/18/2023 9:59 AM EDT) Trichomonas (NAAT) NOT DETECTED NOT DETECTED [facility] Comment:The analytical perfo rmance characteristics of thisassay have been determined by [employer]. Themodifications have not been cleared or approved bythe FDA. This assay has been validated pursuant to theCLIA regulations and is used for clinical purposes.For additional information, please refer tohttp://education.[employer]/faq/Trichomonastma(This link is being provided for information/educational purposes only.)THIS TEST WAS PERFORMED AT:[employer] [place] [phone] MAHARAJ MD CTNG Ref Lab NOT DETECTED NOT DETECTED [facility] NG Ref Lab NOT DETECTED NOT DETECTED [facility] Pap Vial Vaginal structure / Unknown 08/18/2023 9:59 AM EDT 08/19/2023 6:30 AM EDT us Florencia Lee CNM LAB CYTOLOGY ORDERABLES F inal Result Performing Organization Address [facility]/ZIP Co de Phone Number [facility] [address], [place] [phone] * HPV mRNA E6/E7 w/Reflex to HPV Genotypes 16, 18/45 (08/18/2023 9:59 AM EDT) HPV nRNA E6/E7 Not Detected Not Detected [facility] Comment:Methodology: Transcr iption-Mediated AmplificationThis assay detects E6/E7 viral messenger RNA (mRNA) from 14high-risk HPV types (16,18,31,33,35,39,45,51,52,56,58,59,66,68).Cervical sources are required for HPV testing.If a vaginal source from a patient who has had atotal hysterectomy with removal of cervix wassubmitted, please contact the testing laboratoryfor alternative testing options.For additional information, please refer tohttp://education.[employer]/faq/XXJ905l0(This link if provided for information/educational purposes only.)THIS TEST WAS PERFORMED AT:[employer] [place] [phone] MAHARAJ MD HPV mRNA E6/E7 [facility] HPV 16 RNA [facility] HPV 18/45 RNA [facility] 08/18/2023 9:59 AM EDT 08/19/2023 6:30 AM EDT us Florencia Lee [facility] LAB CYTOLOGY ORDERABLES F inal Result [facility] [address] [place] [phone] from Last 3 Months or Most Recently Relevant to Health Maintenance Insurance [facility] C3 HSN FULL DENTAL-[facility] MEDICAID STAND ADULT DENTAL - HSN FULL (MEDICAID) Care Teams Wire Walker Relationship Specialty Start Date End Date Name, MD Ephraim [address] [place] [address] PCP - General Family Medicine 01/31/16
--- OUTSIDE RECORDS SUMMARY | 2025-01-19 12:38 | XMS_ITS | Clinical Summary ---
Author Organization [facility] Address [address] [place], [place] [phone] Phone Care Team Providers Care Shed Workers Supervisor Name Role Phone Name, Ephraim FERGUSON Primary Care Provider [phone] Allergies Active Allergy Reactions Criticality Noted Date Comments Aspirin 05/08/2021 Medications valACYclovir (VALTREX) 500 MG tablet Take 1 tablet (500 mg total) by mouth 2 (two) times a day for 5 days. 10 tablet 01/12/2025 Active Problems No known active problems Encounters Date Type Department Care Team Description 01/12/2025 Telephone [facility] at [address] [address] Mayra Dhaliwal CNP 01/08/2025 2:10 PM EDT Office Visit [facility] at [address] [address] Emma Naik, PAINTER CHASSIS Rash and other nonspecific skin eruption (Primary Dx) from Last 3 Months Social History Tobacco Use Types Packs/Day Years Used Date Smoking Tobacco: Never Assessed Education Answer Date Recorded Are you interested in more education? Not on estevan e 09/12/2022 Are you concerned about learning? Not on file 09/12/2022 No 09/12/2022 No 09/12/2022 Digital Access Answer Date Recorded No 10/13/2022 No 10/13/2022 Reliable internet access at home? Not on file 10/13/2022 Device with a working camera? Not on file Comments Unknown Sex and Gender Information Value Date Recorded Sex Assigned at Female 05/08/2021 4:03 PM EST Legal Sex Female 3:28 PM EST Gender Identity Female 05/08/2021 4:03 PM EST Sexual Orientation Choose not to disclose 2023 8:10 PM EST Last Filed Vital Signs Vital Sign Reading Time Taken Comments Blood Pressure 115/64 07/09/2023 8:52 PM EST Pulse 86 07/09/2023 8:52 PM EST Temperature 37.3 C (99.1 F) 07/09/2023 9:06 PM EST Respiratory Rate 18 07/09/2023 8:52 PM EST Oxygen Saturation 99% 07/09/2023 8:52 PM EST Inhaled Oxygen Concentration - - Weight 61.2 kg (135 lb) 07/09/2023 4:08 PM EST Height 162.6 cm (5' 4 ) 07/09/2023 4:08 PM EST Body Mass Index 23.17 07/09/2023 4:08 PM EST Plan of Treatment Health Maintenance Due Date Last Done Comments DEPRESSION SCREENING 2004 SMOKING Hx and SMOKELESS TOB ACCO SCREENING 2005 HEPATITIS C SCREENING 2010 HIV ONE-TIME SCREENING (18-6 5 YEARS) 2010 PAP SMEAR 2013 INFLUENZA VACCINE (#1) 2024 COVID-19 VACCINE (2023-2 5 season) 2025 Adult Td,Tdap Booster 08/01/2031 07/31/2021 HEPATITIS A VACCINES Aged Out No long er eligible based on patient's age to complete this topic HIB VACCINES Aged Out No longer eligi ble based on patient's age to complete this topic MENINGOCOCCAL VACCINES (ACWY) Aged Out No longer eligible based on patient's age to complete this topic MENINGOCOCCAL VACCINES (B) Aged Out N o longer eligible based on patient's age to complete this topic PNEUMOCOCCAL VACCINES (0-49 years) Aged Out No longer eligible based on patient's age to complete this topic Medical Devices Not on file Procedures Procedure Name Priority Date/Time Associated Diagnosis Comments HSV PCR Routine 01/08/2025 3:23 PM EDT Rash and other nonspecific skin eruption from Last 3 Months Results * (ABNORMAL) HSV PCR Dermal (01/08/2025 3:23 PM EDT) HSV 1, PCR Negative Negative [facility] HSV 2, PCR Positive(A) Negative [facility] Comment: (NOTE) ADDITIONAL INFORMATION This test was developed and its performance characteristics determined by [facility] in a manner consistent with CLIA requirements. This test has not been cleared or approved by the U.S. Food and Drug Administration. SPECIMEN SOURCE HSV SKIN RIGHT BUTTOCKS [facility]+ Comment:Corrected on 01/11 A T 2051: previously reported as SKIN RIGHT BUTTOCKS, Corrected on 01/09 AT 1002: previously reported as NASAL Other (Dermal) 01/08/2025 3: 23 PM EDT 01/08/2025 5:05 PM EDT Emma Naik PAINTER CHASSIS BODY FLUIDS AND STOOLS WINTER [place]ARTLEY Edited Result - Final [facility] PAT+ [address] [place] [address] from Last 3 Months Insurance [facility] C3 ACO C3 ACO C3 ACO C3 ACO [facility] C3 ACO Care Teams Shed Workers Supervisor Relationship Specialty Start Date End Date Name, MD Ephraim [address] [place] [address] PCP - General Geriatric Psychiatry 05/08/21 Additional Source Comments The information contained in this document represents components of the legal health record. It is not the complete legal health record.[facility]
--- OUTSIDE RECORDS SUMMARY | 2025-01-19 12:38 | XMS_ITS | Encounter Summary ---
Author Organization [employer] Address [address] [facility] 7t [place] [address] Care Team Providers Care Hvac Design Mechanical Engineer Name Role Phone Name, Ephraim FERGUSON Primary Care Provider [phone] Reason for Visit * Reason Onset Date Comments Nurse Triage 01/17/2025 Encounter Details Date Type Department Care Team ([facility] st Contact Info) Description 01/17/2025 Telephone [facility] [address] [place], [place] [id number] Name, MD Ephraim [address] [place] [address] Nurse Triage Social History Tobacco Use Types Packs/Day Years [...] encounter Miscellaneous Notes * Telephone Encounter - Allie Lopez, REPORTING ANALYST - 01/17/2025 2:14 PM EDT Triage call returned with BLS # [id number] Tracy. Patient reports 2-3 weeks of low back pain and some discomfort in her bladder. No blood or pus in urine no fever. Reports good water intake daily no n/v reported. [facility] advised with hours for todaydeclined. Requestint appt for Wednesday. ASK/PCP Wednesday at 11am. Multiple (2) protocols were used on this call. Disposition for Call: See in Office or Video Visit within 3 Days Protocol Used: Urinary Symptoms (Adult) Protocol-Based Disposition: See in Office or Video Visit Today Override (Final) Disposition: See in Office or Video Visit within 3 Days Override Reason: Caller refused suggested disposition Video visit offer not recorded Positive Triage Question: * Side (flank) or lower back pain present * All higher-acuity triage questions were negative Care Advice Discussed: * Reasons To Call Back - Fever occurs - Pain or burning with urination - Unable to urinate and bladder feels full - You become worse Protocol Used: Back Pain (Adult) Protocol-Based Disposition: See in Office or Video Visit within 2 Weeks Video visit not offered Positive Triage Question: * Back pain lasts > 2 weeks * All higher-acuity triage questions were negative Care Advice Discussed: * Sleep * Pain Medicines * Reasons To Call Back - Severe pain not better after taking pain medicines - Moderate pain (interferes with normal activities) lasts over 3 days - Fever occurs - You become worse * Telephone Encounter - Jamilah Cyr - 01/17/2025 12:54 PM EDT Symptoms: Back Pain - Not From Injury, Abdominal Pain - Female - Not Outcome: Schedule an urgent appointment (within 4 hours) or talk to a nurse or provider soon Reason: Started within the past 3 days The caller accepted this outcome. Contact pt at [phone] Need division controller documented in this encounter Plan of Treatment Upcoming Encounters Date Type Department Care Team (Late st Contact Info) Description 04/03/2025 10:45 AM EST Office Visit [facility] [address] [place] [id number] Name, MD Ephraim [address] [place] [address] documented as of this encounter Visit Diagnoses Not on filedocumented in this encounter Additional Health Concerns Assessment Noted Time PHQ-9 Depression Total Score: 6 11/08/19 25 10:52 AM EDT documented as of this encounter Care Teams Hvac Design Mechanical Engineer Relationship Specialty Start Date End Date Name, MD Ephraim [address] [place] [address] PCP - General Family Medicine 01/31/16 documented as of this encounter
--- OUTSIDE RECORDS SUMMARY | 2025-01-19 12:38 | XMS_ITS | Encounter Summary ---
Author Organization [employer] Address [address] [place] [address] 7 [place] [address] Care Team Providers Care Assistant Accounting Manager Name Role Phone Name, Ephraim FERGUSON Primary Care Provider Encounter Details Date Type Department Care Team (Latest Contact Info) Description 08/20/2021 Abstract [facility] CONVERSIONS Dental, Provider, DDS Social History [...] Care Team ( st Contact Info) Description 04/03/2025 10:45 AM EST Office Visit [facility] [address] [place] [address] Name, MD Ephraim [address] [place] [address] documented as of this encounter Visit Diagnoses Not on filedocumented in this encounter Care Teams Assistant Accounting Manager Relationship Specialty Start Date End Date Name, MD Ephraim [address] [place] [address] PCP - General Family Medicine 01/31/16 documented as of this encounter
--- OUTSIDE RECORDS SUMMARY | 2025-01-19 12:38 | XMS_ITS | Encounter Summary ---
Author Organization [facility] Address [address] [place], [place] [phone] Phone Care Team Providers Care Concrete Grinder Operator Name Role Phone Name, Ephraim FERGUSON Primary Care Provider [phone] Encounter Details Date Type Department Care Team (Late st Contact Info) Description 05/08/2021 Procedure Pass [facility], Ct Scan - [address] [address] Social History Tobacco Use Types Packs/Day Years Used Date Smoking Tobacco: Never Assessed Comments Unknown Sex and Gender Information Value Date Recorded Sex Assigned at Female 05/08/2021 4:03 PM EST Legal Sex Female 3:28 PM EST Gender Identity Female 05/08/2021 4:03 PM EST Sexual Orientation Choose not to disclose 2023 8:10 PM EST documented as of this encounter Functional Status * Calculated C-SSRS Risk Score (Lifetime/Recent) Answer Date of Assessment Author No Risk Indicated 05/08/2021 3:58 PM EST Mona Salas, RN * [place] Suicide Severity Rating Scale (Screener/Recent Self-Report) Question Answer Date of Assessment Author 1. Wish to be (Past 1 Month) No 021 3:58 PM Mona Tatum, RN 2. Non-Specific Active Suici rodger Thoughts (Past 1 Month) No 05/08/2021 3:58 PM Mona Tatum, RN 6. Suicidal Behavior (Lifetime) No 3:58 PM Mona Tatum, RN documented as of this encounter Plan of Treatment Not on file documented as of this encounter Visit Diagnoses Not on filedocumented in this encounter Care Teams Concrete Grinder Operator Relationship Specialty Start Date End Date Name, MD Ephraim [address] [place] [address] PCP - General Geriatric Psychiatry 05/08/21 documented as of this encounter Additional Source Comments The information contained in this document represents components of the legal health record. It is not the complete legal health record.[facility]
--- OUTSIDE RECORDS SUMMARY | 2025-01-19 12:38 | XMS_ITS | Encounter Summary ---
Author Organization [employer] Address [address] [place] [address] [address] [place] [address] Care Team Providers Care Health Educator Name Role Phone Name, Ephraim FERGUSON Primary Care Provider Encounter Details Date Type Department Care Team ([facility] st Contact Info) Description 05/13/2022 Abstract [facility] MEDICINE [address] [place], [place] [phone] Name, MD Ephraim [address] [place] [address] Social History Tobacco Use Types Packs/Day Years [...] as of this encounter Functional Status * Over the past 2 weeks, how often have you been bothered by any of the following problems? Question Answer Date of Assessment Author Little interest or pleasure in doing things Nearly every day 05/13/2022 3:27 PM EST Elisa Tran MA Feeling down, depressed, or hopeless Nearly every day 05/13/2022 3:27 PM Elisa Holley MA Patient Health Questionnaire-2 Score 6 05/13/2022 3:27 PM Elisa Holley MA * Question Answer Date of Assessment Author Trouble falling or staying asleep, or sleeping too much Nearly every day 05/13/2022 3:27 PM Elisa Holley MA Feeling tired or having little energy Nearly every day 05/13/2022 3:27 PM Elisa Holley MA Poor appetite or overeating Nearly every day 05/13/2022 3:27 PM Elisa Holley MA Feeling bad about yourself - or that you are a failure or have let yourself or your family down Nearly every day 05/13/2022 3:27 PM Elisa Holley MA Trouble concentrating on things, such as reading the newspaper or watching television Nearly every day 05/13/2022 3:27 PM Elisa Holley MA Moving or speaking so slowly that other people could have noticed? Or the opposite - being so fidgety or restless that you have been moving around a lot more than usual. Nearly every day 05/13/2022 3:27 PM Elisa Holley MA Thoughts that you would be better off or hurting yourself in some way Not at all 05/13/2022 3:27 PM Elisa Holley MA Patient Health Questionnaire-9 Score 24 05/13/2022 3:27 PM Elisa Holley MA * If you checked off any problems on this questionnaire so far, Question Answer Date of Assessment Author How difficult have these problems made it for you to do your work, take care of things at home, or get along with other people? Very difficult 05/13/2022 3:27 PM Bisi Holley MA documented as of this encounter Plan of Treatment Upcoming Encounters Date Type Department Care Team (Late st Contact Info) Description 04/03/2025 10:45 AM EST Office Visit [facility] [address] [place] [address] Name, MD Ephraim [address] [place] [address] documented as of this encounter Visit Diagnoses Not on filedocumented in this encounter Additional Health Concerns Assessment Noted Time PHQ-9 Depression Total Score: 24 022 3:27 PM EST documented as of this encounter Care Teams Health Educator Relationship Specialty Start Date End Date Name, MD Ephraim [address] [place] [address] PCP - General Family Medicine 01/31/16 documented as of this encounter
--- OUTSIDE RECORDS SUMMARY | 2025-01-19 12:38 | XMS_ITS | Encounter Summary ---
Author Organization [employer] Address [address] [facility] 7t [place] [address] Care Team Providers Care Configuration Consultant Name Role Phone Name, Ephraim FERGUSON Primary Care Provider [phone] Encounter Details Date Type Department Care Team ([facility] st Contact Info) Description 05/08/2024 Orders Only [facility] MED [facility] PEDS [address] [place], [place] [phone] Kermit Rivera MD [address] [place] [address] Social History Tobacco Use Types Packs/Day Years [...] t he electric, gas, oil or water [employer] threatened to shut off services in your [...] Description 04/03/2025 10:45 AM EST Office Visit [facility] [address] [place] [address] Name, MD Ephraim [address] [place] [address] documented as of this encounter Visit Diagnoses Not on filedocumented in this encounter Additional Health Concerns Assessment Noted Time PHQ-9 Depression Total Score: 24 022 3:27 PM EST documented as of this encounter Care Teams Configuration Consultant Relationship Specialty Start Date End Date Name, MD Ephraim [address] [place] [address] PCP - General Family Medicine 01/31/16 documented as of this encounter
--- OUTSIDE RECORDS SUMMARY | 2025-01-19 12:38 | XMS_ITS | Encounter Summary ---
Author Organization [employer] Address [address] [facility] 7t [place] [address] Care Team Providers Care Sybase Developer Name Role Phone Name, Ephraim FERGUSON Primary Care Provider [phone] Reason for Visit * Reason Onset Date Comments Chart Prep 01/18/2025 Encounter Details Date Type Department Care Team ([facility] st Contact Info) Description 01/18/2025 Telephone [facility] [address] [place] [address] Name, MD Ephraim [address] [place] [address] Chart Prep Social History Tobacco Use Types Packs/Day Years [...] encounter Miscellaneous Notes * Telephone Encounter - Mitch Chapman MA - 01/18/2025 10:25 AM EDT Chart Prep Labs: done Images: not applicable Referrals: appointment pending Vaccines due: Covid, Flu, Hep B, and HPV Screenings: Alcohol/Substance Use Screening Overdue care gaps: SBIRT and Tobacco documented in this encounter Plan of Treatment Upcoming Encounters Date Type Department Care Team (Late st Contact Info) Description 04/03/2025 10:45 AM EST Office Visit [facility] [address] [place] [address] Name, MD Ephraim [address] [place] [address] documented as of this encounter Visit Diagnoses Not on filedocumented in this encounter Additional Health Concerns Assessment Noted Time PHQ-9 Depression Total Score: 6 11/08/19 10:52 AM EDT documented as of this encounter Care Teams Sybase Developer Relationship Specialty Start Date End Date Name, MD Ephraim [address] [place] [address] PCP - General Family Medicine 01/31/16 documented as of this encounter
[2025-01-19 13:52] LABS: Appearance Urine Clear; Glucose Urine UA Negative (Negative); PH 5.5 (5.0-9.0); Specific Gravity - Urine 1.025 (1.005-1.025); UMIC TRIGGER UACC YES
[2025-01-19 14:02] LABS: UACC Culture Trigger YES
[2025-01-22 04:15] LABS: HBsAGNum1 0.32 S/CO (0.00-0.99); HIV Num 1 0.06 S/CO (0.00-0.99); Hepatitis B Surface Antigen Negative (Negative); ~HepC Num1 0.11 S/CO (0.00-0.79); ~Hepatitis C Antibody Nonreactive (Nonreactive)
[2025-01-22 18:44] LABS: C. trachomatis RNA TMA NOT DETECTED (NOT DETECTED); N. gonorrhoeae RNA TMA NOT DETECTED (NOT DETECTED)
== END 2025-01-19 11:56 | disposition home or self-care (01) ==
LOC: HO.HHCL 11:55
PROVIDERS: PCP Internal Medicine Geriatric Medicine; Visit Provider Internal Medicine Geriatric Medicine
DX: Z01.84 Encounter for antibody response examination (principal); B00.9 Herpesviral infection, unspecified; Z11.3 Encounter for screening for infections with a predominantly sexual mode of transmission; Z11.8 Encounter for screening for other infectious and parasitic diseases; Z11.59 Encounter for screening for other viral diseases
CPT/HCPCS: 36415; 81001; 86592; 86803; 87086; 87340; 87389; 87491; 87591

== ENCOUNTER 2025-04-03 16:06 | Outpatient (REF) | payer MEDICAID, SELFPAY ==
[2025-04-03 16:13] LABS: Appearance Urine Clear; Glucose Urine UA Negative (Negative); PH 6.0 (5.0-9.0); Specific Gravity - Urine >= 1.030 (1.005-1.025)
[2025-04-04 12:06] LABS: Bacterial Vaginosis PCR POSITIVE (Negative); Candida Group PCR NOT DETECTED (Not Detect); Candida glab krusei PCR NOT DETECTED (Not Detect); Trichomonas vaginalis PCR NOT DETECTED (Not Detect)
== END 2025-04-03 16:07 | disposition home or self-care (01) ==
LOC: HO.HHCLNP 16:06
PROVIDERS: Visit Provider Internal Medicine Geriatric Medicine
DX: Z20.2 Contact with and (suspected) exposure to infections with a predominantly sexual mode of transmission (principal); N89.8 Other specified noninflammatory disorders of vagina
CPT/HCPCS: 81001; 81515

== ENCOUNTER 2025-04-11 11:17 | Outpatient (REF) | payer MEDICAID, SELFPAY ==
[2025-04-11 13:10] LABS: MANUAL DIFF FLAG NO
[2025-04-11 13:22] LABS: Hematocrit 38.8 % (37.0-47.0); Hemoglobin 13.0 g/dl (12.0-16.0); Imm Gran Abs Auto 0.01 X10*3/uL (0.00-0.03); Imm Gran Pct Auto 0.2 % (0.0-0.4); Lymphocytes Absolute Auto 1.7 X10*3/uL (1.2-4.9); Mean Corpuscular HGB Conc 33.5 g/dl (31.0-35.0); Mean Corpuscular Hemoglobin 30.8 pg (27.0-33.0); Mean Corpuscular Volume 91.9 fL (80.0-98.0); NRBC Abs Auto 0.000 X10*3/uL (0.0-0.012); NRBC Pct Auto 0.0 /100WBC (0.0-0.2); Platelet Count 289 X10*3/uL (160-400); Red Blood Count 4.22 X10*6/uL (4.20-5.50); White Blood Count 5.4 X10*3/uL (4.8-10.8)
[2025-04-11 13:58] LABS: Alanine Aminotransferase 17 U/L (0-31); Albumin Level 4.4 g/dL (3.5-5.0); Alkaline Phosphatase 117 U/L (39-117); Anion Gap 8 (12-20); Aspartate Amino Transferase 21 U/L (5-31); Blood Urea Nitrogen 16 mg/dL (9-16); Calcium 9.3 mg/dL (8.4-10.2); Carbon Dioxide 26 mmol/L (22-29); Chloride 108 mmol/L (96-108); Cholesterol 130 mg/dL (<200); Estimated Glomerular Filt Rate > 60; HDL Cholesterol 71 mg/dL (>40); Potassium 3.7 mmol/L (3.3-5.1); Sodium 138 mmol/L (135-145); Total Protein 7.2 g/dL (6.5-8.0); Triglycerides 37 mg/dL (<150)
--- OUTSIDE RECORDS SUMMARY | 2025-04-11 14:02 | XMS_ITS | Encounter Summary ---
Author Organization [facility] Address [address] [place], [place] [phone] Phone Care Team Providers Care Quality Control Representative Name Role Phone Name, Ephraim FERGUSON Primary Care Provider [phone] Encounter Details Date Type Department Care Team (Late st Contact Info) Description 05/08/2021 Procedure Pass [facility], Ct Scan - [address] [address] Social History Tobacco Use Types Packs/Day Years [...] 3:58 PM EST Mona Salas, RN * [place] Suicide Severity Rating Scale (Screener/Recent Self-Report) Question [...] on filedocumented in this encounter Care Teams Quality Control Representative Relationship Specialty Start Date End Date Name, MD Ephraim [address] [place] [address] PCP - General Geriatric Psychiatry 05/08/21 documented as of this encounter Additional Source Comments The information contained in this document represents components of the legal health record. It is not the complete legal health record.[facility]
--- OUTSIDE RECORDS SUMMARY | 2025-04-11 14:02 | XMS_ITS | Encounter Summary ---
Author Organization [employer] Address [address] [place] [address] [address] [place] [address] Care Team Providers Care Pewter Caster Name Role Phone Name, Ephraim FERGUSON Primary Care Provider [phone] Encounter Details Date Type Department Care Team (Latest Contact Info) Description 08/20/2021 Abstract [facility] CONVERSIONS Dental, Provider, DDS Social History Tobacco [...] Care Team (Late st Contact Info) Description 06/15/2025 11:00 AM EST Office Visit [facility] MEDICINE [address] [place] [address] Tiffany Flanagan MD [address] [place] [address] documented as of this encounter Visit Diagnoses Not on filedocumented in this encounter Care Teams Pewter Caster Relationship Specialty Start Date End Date Name, MD Ephraim [address] [place] [address] PCP - General Family Medicine 01/31/16 documented as of this encounter
--- OUTSIDE RECORDS SUMMARY | 2025-04-11 14:02 | XMS_ITS | Clinical Summary ---
Author Organization [facility] Address [address] [place], [place] [phone] Phone Care Team Providers Care Palletizer Operator Name Role Phone Name, Ephraim FERGUSON Primary Care Provider [phone] Allergies Active Allergy Reactions Criticality Noted Date Comments Aspirin 05/08/2021 Medications No known medications Active Problems No known active problems Encounters Date Type Department Care Team Description 01/12/2025 Telephone [facility] at [address] [address] Mayra Dhaliwal CNP from Last 3 Months Social History Tobacco [...] 2013 INFLUENZA VACCINE (#1) 2024 COVID-19 VACCINE (2024-2 6 season) 2025 Adult Td,Tdap Booster 08/01/2031 07/31/2021 [...] this topic Medical Devices Not on file Insurance [facility] C3 ACO C3 ACO C3 ACO C3 ACO C3 ACO [facility] C3 ACO Care Teams Palletizer Operator Relationship Specialty Start Date End Date Name, MD Ephraim [address] [place] [address] PCP - General Geriatric Psychiatry 05/08/21 Additional Source Comments The information contained in this document represents components of the legal health record. It is not the complete legal health record.[facility]
--- OUTSIDE RECORDS SUMMARY | 2025-04-11 14:02 | XMS_ITS | Clinical Summary ---
Author Organization [employer] Address [address] [facility] [address] [place] [address] Care Team Providers Care Chief Creative Officer Name Role Phone Name, Ephraim FERGUSON Primary Care Provider [phone] Allergies Active Allergy Reactions Criticality Noted Date [...] to exceed 200mg in 24hrs 1 Active melatonin 5 MG tabletIndicatio ns:Situational stress Use one tablet at bedtime 30 tablet 1 5 Active valACYclovir (Valtrex) 500 MG tablet Take 1 tablet by mouth 2 times daily. 5 Active metroNIDAZOLE (Flagyl) 500 MG tablet Take 1 tablet (500 mg) by mouth 2 times daily for 7 days. 14 tablet 5 04/10/20 25 Hospital, Clinic, or Other Facility Administered Medication [...] intervention , Patient to reach out to [facility] team as needed, and Patient [...] intervention , Patient to reach out to [facility] team as needed, and Patient [...] er precautions reviewed Breast pain, right 01/10/2024 5 Subareolar mass of right breast 01/10/2024 11/07/2024 [...] intervention , Patient to reach out to [facility] team as needed, and Patient to engage in OP therapy Palpitations 08/24/2018 11/07/2024 Syncope and collapse 08/24/2018 025 Encounters * This document contains information received from the source organization and may not represent a complete record from that organization. Date Type Department Care Team Description 04/04/2025 Results Follow-Up [facility] [address] [place] [id number] Name, MD Ephraim Bacterial Vaginosis, Urinalysis, Complete, with Reflex to Culture, POCT Urinalysis, Additional followed-up results: 3 04/03/2025 2:00 PM EST Office Visit [address] [address] Ephraim Cox MD PE (physical exam), routine (Primary Dx); Screening for diabetes mellitus; Screening for cholesterol level; Vaginal discharge; Vaccine refused by patient 04/03/2025 Travel 01/19/2025 11:00 AM EDT Office Visit [address] [address] Ephraim Cox MD HSV-2 infection (Primary Dx); Routine screening for STI (sexually transmitted infection); Situational stress; Dysuria; Anxiety 01/19/2025 Orders Only [address] [address] Ephraim Cox MD 01/19/2025 Travel 01/18/2025 Telephone [facility] P[facility] [address] [place], [place] [phone] Ephraim Cox MD Chart Prep 01/17/[address] [address] Ephraim Cox MD Nurse Triage from Last 3 Months Immunizations Immunization Administration [...] have a drink containing alcohol ? 0 04/03/2025 How many drinks containing a lcohol do you have on a typical day when you are drinking? 0 04/03/2025 How often do you have six or more drinks on one occasion? 0 04/03/2025 Depression Answer Date Recorded Patient Health Questionnaire-9 [...] Sign Reading Time Taken Comments Blood Pressure 105/87 04/03/2025 2:14 PM EST Pulse 91 04/03/2025 2:14 PM EST Temperature 36.5 C (97.7 F) 04/03/2025 2:14 PM EST Respiratory Rate 20 04/03/2025 2:14 PM EST Oxygen Saturation 99% 04/03/2025 2:14 PM EST Inhaled Oxygen Concentration - - Weight 70.5 kg (155 lb 6.4 oz) 04/03/2025 2:14 P M EST Height 162.6 cm (5' 4 ) 04/03/2025 2:14 PM EST Body Mass Index 26.67 04/03/2025 2:14 PM EST Plan of Treatment Upcoming Encounters Date Type Department Care Team (Late st Contact Info) Description 06/15/2025 11:00 AM EST Office Visit [facility] [address] [place] [address] Tiffany Flanagan MD [address] [place] [address] Health Maintenance Due Date Last Done Comments Family Planning (PISQ) 10/23/2007 HPV Vaccines (1 - 3-dose series) 10/23/2007 Hepatitis B Vaccines (1 of 3 - 19+ 3-dose series) 10/23/2011 Dental Oral Exam 02/20/2022 08/20/2021 Dental Prophylaxis 02/20/2022 08/20/2021 Dental X-Ray: Bitewings 08/21/2022 08/20/2021 COVID-19 Vaccine ( season) 2025 04/15/2022, 07/29/2021, 03/10/2021, Additional history exists Influenza Vaccine (#1) 2025 , 07/31/2021, 02/11/2016 SDOH Screening 10/30/2025 10/30/2024 Depression Screening 11/07/2025 11/07/2024, 11/08/19 25 Disability Screening 11/07/2025 11/07/2024 Alcohol/Substance Use Screening 01/19/2026 01/19/2025 Tobacco Screening 04/03/2026 04/03/2025 Cervical Cancer Screening 08/17/2026 HPV/Cotest 08/17/2026 08/18/2023 Pap Smear 08/17/2026 08/18/2023, 08/18/2023 Dental X-Ray: Full Mouth 08/11/2027 025, 06/03/2021, 04/30/2021, Additional history exists DTaP/Tdap/Td Vaccines (7 - Td or Tdap) 08/01/2031 07/31/2021, 07/17/1997, 01/22/1994, Additional history exists Zoster Vaccines (1 of 2) 2042 RSV Patients and Patients Aged 60 years or older (1 - 1-dose 75+ series) 10/23/2067 HIV Screening Completed 01/19/2025, 10/16, 09/18/2024, Additional history exists Hepatitis C Screening Completed 01/19/2025 , 11/07/2024, 07/17/2024, Additional history exists HIB Vaccines Aged Out [...] Procedure Name Priority Date/Time Associated Diagnosis Comments CBC WITH AUTO DIFFERENTIAL Routine 04/11/2025 11:26 AM EST PE (physical exam), routine LIPID PANEL, STANDARD Routine 04/11/2025 11:26 AM EST PE (physical exam), routine Screening for cholesterol level COMPREHENSIVE METABOLIC PANEL Routine 04/11/2025 11:26 AM EST PE (physical exam), routine Screening for diabetes mellitus POCT URINALYSIS DIPSTICK Routine 04/03/2025 2:54 PM EST Vaginal discharge URINALYSIS, COMPLETE, WITH REFLEX TO CULTURE Routine 04/03/2025 2:49 PM EST Vaginal discharge BACTERIAL VAGINOSIS PANEL Routine 04/03/2025 2:49 PM EST Vaginal discharge HEPATITIS C AB W/REFL TO HCV RNA, QN, PCR Routine 01/19/2025 12:20 PM EDT Routine screening for STI (sexually transmitted infection) HEPATITIS B SURFACE ANTIGEN, EIA Routine 01/19/2025 12:20 PM EDT Routine screening for STI (sexually transmitted infection) RPR (MONITOR) W/REFL TITER Routine 01/19/2025 12:20 PM EDT Routine screening for STI (sexually transmitted infection) HIV 1/2 ANTIGEN/ANTIBODY, FOURTH GENERATION W/RFL Routine 01/19/2025 12:20 PM EDT Routine screening for STI (sexually transmitted infection) C.TRACHOMATIS/N. GONORRHOEAE DNA PROBE Routine 01/19/2025 11:39 AM EDT POCT URINALYSIS DIPSTICK Routine 01/19/2025 11:31 AM EDT Dysuria URINALYSIS, COMPLETE, WITH REFLEX TO CULTURE Routine 01/19/2025 11:20 AM EDT HSV-2 infection CULTURE, URINE, ROUTINE Routine 01/19/2025 12:00 AM EDT HPV MRNA E6/E7 REFLEX TO HPV 16, [...] Recently Relevant to Health Maintenance Results * CBC auto differential (04/11/2025 11:26 AM EST) White Blood Count 5.4 4.8 - 10.8 X10*3/uL [facility] Red Blood Count 4.22 4.20 - 5.50 X10*6/uL [facility] Hemoglobin 13.0 12.0 - 16.0 g/dl [facility] Hematocrit 38.8 37.0 - 47.0 % [facility] Mean Corpuscular Volume 91.9 80.0 - 98.0 fL [facility] Mean Corpuscular Hemoglobin 30.8 27.0 - 33.0 pg [facility] Mean Corpuscular HGB Conc 33.5 31.0 - 35.0 g/dl [facility] Red Cell Distribution Width 12.5 11.0 - 16.0 % [facility] Platelet Count 289 160 - 400 X10*3/uL [facility] Mean Platelet Volume 9.6 9.4 - 12.3 fL [facility] Neutrophils Percent Auto 57.6 45 - 73 % [facility] Imm Gran Pct Auto 0.2 0.0 - 0.4 % [facility] Lymphocytes Percent Auto 31.2 20 - 40 % [facility] Monocytes Percent Auto 8.4 2 - 11 % [facility] Eosinophils Percent Auto 2.2 0 - 4 % [facility] Basophils Percent Auto 0.4 0 - 2 % [facility] NRBC Pct Auto 0.0 0.0 - 0.2 /100WBC [facility] Neutrophils Absolute Auto 3.1 2.0 - 8.3 x10*3/uL [facility] Imm Gran Abs Auto 0.01 0.00 - 0.03 X10*3/uL [facility] Lymphocytes Absolute Auto 1.7 1.2 - 4.9 X10*3/uL [facility] Monocytes Absolute Auto 0.5 0.1 - 1.2 X10*3/uL [facility] Eosinophils Absolute Auto 0.1 0.0 - 0.4 X10*3/uL [facility] Basophils Absolute Auto 0.0 0.0 - 0.2 X10*3/uL [facility] NRBC Abs Auto 0.000 0.0 - 0.012 X10*3/uL [facility] Blood Venous blood specimen / Unknown 04/11/2025 11:26 AM EST 04/11/2025 1:03 PM EST us Ephraim Cox MD LAB BLOOD ORDERABLES Final Resul t [facility] [address] [place] [phone] * Lipid Panel, Standard (04/11/2025 11:26 AM EST) Triglycerides 37 <150 mg/dL [facility] Comment:Desirable Triglyceri de: less than 150 mg/dLBorderline High Triglyceride 150-199 mg/dLHigh Triglyceride: 200-499 mg/dLVery High Triglyceride: greater than or equal to 5OO mg/dL Cholesterol 130 <200 mg/dL [facility] Comment:Desirable Cholestero l: less than 200 mg/dLBorderline High Cholesterol: 200-239 mg/dLHigh Cholesterol: greater than 239 mg/dL LDL Cholesterol Calculated 52 <100 mg/dL [facility] Comment:Desirable LDL: less than 100 mg/dLNear Optimal/Above Optimal LDL: 110- 129 mg/dLBorderline High LDL: 130-159 mg/dLHigh LDL: 160-189 mg/dLVery High LDL: greater than or equal to 190 mg/dL HDL Cholesterol 71 >40 mg/dL [facility] Comment:Desirable HDL: great er than 40 mg/dL Note: This HDL assay may give artificially low results in patients with liver disease. Blood Venous blood specimen / Unknown 04/11/2025 11:26 AM EST 04/11/2025 1:03 PM EST us Ephraim Cox MD LAB BLOOD ORDERABLES Final Resul t Performing Organization Address City/[facility]/ZIP Co de Phone Number [facility] [address] [place] [phone] * (ABNORMAL) Comprehensive Metabolic Panel (04/11/2025 11:26 AM EST) Sodium 138 135 - 145 mmol/L [facility] Potassium 3.7 3.3 - 5.1 mmol/L [facility] Chloride 108 96 - 108 mmol/L [facility] Carbon Dioxide 26 22 - 29 mmol/L [facility] Anion Gap 8(L) 12 - 20 [facility] Urea Nitrogen (BUN) 16 9 - 16 mg/dL [facility] Creatinine, Serum 0.75 0.5 - 1.4 mg/dL [facility] Estimated Glomerular Filt Rate >60 [facility] Comment:Chronic Kidney Disea se: Estimated GFR < 60 mL/min/1.42n8Snirbf Kidney Disease: Estimated GFR < 15 mL/min/1.73m2 Glucose 99 60 - 115 mg/dL [facility] Calcium 9.3 8.4 - 10.2 mg/dL [facility] Bilirubin, Total 1.0 0.0 - 1.0 mg/dL [facility] Aspartate Amino Transferase 21 5 - 31 U/L [facility] Alanine Aminotransferase 17 0 - 31 U/L [facility] Total Protein 7.2 6.5 - 8.0 g/dL [facility] Albumin Level 4.4 3.5 - 5.0 g/dL [facility] Alkaline Phosphatase 117 39 - 117 U/L [facility] Blood Venous blood specimen / Unknown 04/11/2025 11:26 AM EST 04/11/2025 1:03 PM EST Ephraim Cox MD LAB BLOOD ORDERABLES Final Resul t Performing Organization Address [facility]/ZIP Co de Phone Number [facility] [address] [place] [address] [phone] * POCT Urinalysis (04/03/2025 2:54 PM EST) Only the most recent of2 resultswithin the time period is included. Color, UA Dark Leslie Clarity, UA Clear Glucose, UA Negative Bilirubin, UA Negative Ketones, UA Positive Comment:trace Spec Grav, UA 1.025 Blood, UA Negative Negative, None Detected pH, UA 6.0 Protein, UA Negative Urobilinogen, UA 0.2 Leukocytes, UA Negative Negative, Rare, Trace Nitrite, UA Negative Negative, None Detected Appearance, UA dark yellow QC Media Lot # [id number] Lot# Expiration Date 63,026 Urine (Urine, Random) 04/03/2025 2:54 PM EST us Ephraim Cox MD POINT OF CARE TEST ENTER/EDIT OR DERABLES Final Result * (ABNORMAL) Bacterial Vaginosis (04/03/2025 2:49 PM EST) TRICHOMONAS VAGINALIS DETECTION BY PCR NOT DETECTED Not Detect [facility] BACTERIAL VAGINOSIS DETECTION BY PCR POSITIVE(A) Negative [facility] Comment:The BV organism targ ets [...] DETECTION BY PCR NOT DETECTED Not Detect [facility] Alejandra glab krusei PCR NOT DETECTED Not Detect [facility] Swab Vaginal structure / Unknown 04/03/2025 2:49 PM EST 04/03/2025 4:08 PM EST us Ephraim Cxo MD LAB MICROBIOLOGY - GENERAL ORDER ASHLEY Final Result [facility] [address] [place] [phone] * (ABNORMAL) Urinalysis, Complete, with Reflex to Culture (04/03/2025 2:49 PM EST) Only the most recent of2 resultswithin the time period is included. Color Urine Yellow [facility] Appearance Urine Clear [facility] PH 6.0 5.0 - 9.0 [facility] Glucose Urine UA Negative Negative mg/dL [facility] Urine Blood Negative Negative [facility] Specific [place] - Urine >=1.030(H) 1.005 - 1.025 [facility] Urine Protein Negative Neg-Trace mg/dL [facility] Urine Ketones Trace Negative mg/dL [facility] Nitrite Urine Negative Negative [facility] Leukocyte Esterase Urine Negative Negative [facility] RBC Urine 0-2 0 - 2 /HPF [facility] Urine WBC 0-5 0 - 5 /HPF [facility] Urine Squamous Epithelial Cell 0-2 0 - 2 /HPF [facility] Urine Bacteria Trace None Seen [facility] Hyaline Casts, Urine 0-2 0 - 2 /LPF [facility] Urine 04/03/2025 2:49 PM EST 04/03/2025 4:08 PM EST Narrative [facility] - 04/03/2025 4:40 PM EST Urine, Clean Catch us Ephraim Cox MD LAB URINE ORDERABLES Final Resul t [facility] [address] [place] [address] [phone] * Hepatitis C Antibody with Reflex to HCV, RNA, Quantitative, Real-Time PCR (01/19/2025 12:20 PM EDT) Hepatitis C Antibody Nonreactive Nonreactive [facility] Comment:Antibodies to HCV no t detected; does not exclude early acuteHCV infection. Blood Venous blood specimen / Unknown 01/19/2025 12:20 PM EDT 01/19/2025 4:02 PM EDT us Ephraim Cox MD LAB BLOOD ORDERABLES Final Resul t Performing Organization Address [facility] Co de Phone Number [facility] [address] [place] [phone] * Hepatitis B surface antigen, EIA (01/19/2025 12:20 PM EDT) Hepatitis B Surface Ag Negative Negative [facility] Blood Venous blood specimen / Unknown 01/19/2025 12:20 PM EDT 01/19/2025 4:02 PM EDT us Ephraim Cox MD LAB BLOOD ORDERABLES Final Resul t Performing Organization Address [facility] Phone Number [facility] [address] [place] [phone] * RPR (Monitor) with Reflex to??Titer (01/19/2025 12:20 PM EDT) RPR (Monitor) w/Refl Titer NON-REACTI VE NON-REACT VIPIN [facility] Comment:THIS TEST WAS PERFOR MED AT:[facility] [place] [phone] MAHARAJ MD Rapid Plasma Reagin Ab Titer TNP [facility] Blood Venous blood specimen / Unknown 01/19/2025 12:20 PM EDT 01/19/2025 1:04 PM EDT Ephraim Cox MD LAB BLOOD ORDERABLES Final Resul t Performing Organization Address [facility] Co de Phone Number [facility] [address] [place] [phone] * HIV-1/2 Antigen and Antibodies, Fourth Generation, with Reflexes (01/19/2025 12:20 PM EDT) HIV AB/AG Nonreactive Nonreactive [facility] Comment:HIV-1 p24 Ag and/or HIV-1/HIV-2 Ab not detected.A test result that is nonreactive does not exclude thepossibility of exposure to or infection with HIV-1 and/orHIV-2. Nonreactive results in this assay for individualswith prior exposure to HIV-1 and/or HIV-2 may be due toantigen and antibody levels that are below the limit ofdetection of this assay.The [employer] HIV Ag/Ab Combo assay result andsupplemental assay results should be interpreted inconjunction with the patient's clinical presentation,history and other laboratory results. If the results areinconsistent with clinical evidence, additional testing issuggested to confirm the result. Blood Venous blood specimen / Unknown 01/19/2025 12:20 PM EDT 01/19/2025 4:02 PM EDT us Ephraim Cox MD LAB BLOOD ORDERABLES Final Resul t Performing Organization Address City/[facility]/ZIP Co de Phone Number [facility] [address] [place] [phone] * C.TRACHOMATIS/N. GONORRHOEAE DNA PROBE (01/19/2025 11:39 AM EDT) CTNG Ref Lab NOT DETECTED NOT DETECTED [facility] NG Ref Lab NOT DETECTED NOT DETECTED [facility] 01/19/2025 11:3 9 AM EDT 01/19/2025 5:33 PM EDT us Ephraim Cox MD LAB MICROBIOLOGY - GENERAL ORDER ASHLEY Final Result Performing Organization Address [facility]/ZIP Co de Phone Number [facility] [address] [place] [phone] * Culture, Urine, Routine (01/19/2025 12:00 AM EDT) Urine Urine specimen obtained by clean catch procedure / Unknown 01/19/2025 01/19/2025 Comment:UACC Narrative [facility] - 01/20/2025 11:05 AM EDT Urine Culture Report Result Urine Culture < 10,000 cfu/ml Specimen Source: Urine clean catch Ephraim Cox MD LAB MICROBIOLOGY - GENERAL ORDER ASHLEY Final Result Performing Organization Address [facility] Co de Phone Number [facility] [address] [place] [phone] * Pap with NG,CT,Trich (08/18/2023 9:59 AM EDT) Pathologist [facility] Trichomonas (NAAT) NOT DETECTED NOT DETECTED [facility] Comment:The analytical perfo rmance characteristics of thisassay have been determined by [employer]. Themodifications have not been cleared or approved bythe FDA. This assay has been validated pursuant to theCLIA regulations and is used for clinical purposes.For additional information, please refer tohttp://education.[employer]/faq/Trichomonastma(This link is being provided for information/educational purposes only.)THIS TEST WAS PERFORMED AT:[facility] [place] [phone] MAHARAJ MD CTNG Ref Lab NOT DETECTED NOT DETECTED [facility] NG Ref Lab NOT DETECTED NOT DETECTED [facility] Pap Vial Vaginal structure / Unknown 08/18/2023 9:59 AM EDT 08/19/2023 6:30 AM EDT Florencia Lee CNM LAB CYTOLOGY ORDERABLES F inal Result Performing Organization Address [facility]/ZIP Co de Phone Number [facility] [address] [place] [phone] [phone] * HPV mRNA E6/E7 w/Reflex to HPV Genotypes 16, 18/45 (08/18/2023 9:59 AM EDT) HPV nRNA E6/E7 Not Detected Not Detected [facility] Comment:Methodology: Transcr iption-Mediated AmplificationThis assay detects E6/E7 viral messenger RNA (mRNA) from 14high-risk HPV types (16,18,31,33,35,39,45,51,52,56,58,59,66,68).Cervical sources are required for HPV testing.If a vaginal source from a patient who has had atotal hysterectomy with removal of cervix wassubmitted, please contact the testing laboratoryfor alternative testing options.For additional information, please refer tohttp://education.[employer]/faq/REH571z0(This link if provided for information/educational purposes only.)THIS TEST WAS PERFORMED AT:[facility] [place] [phone] MAHARAJ MD HPV mRNA E6/E7 [facility] HPV 16 RNA [facility] HPV 18/45 RNA [facility] 08/18/2023 9:59 AM EDT 08/19/2023 6:30 AM EDT Florencia Lee [facility] LAB CYTOLOGY ORDERABLES F inal Result [facility] [address] [place] [phone] from Last 3 Months or Most Recently Relevant to Health Maintenance Insurance [facility] C3 D[place] STAND ADULT DENTAL - HSN FULL (MEDICAID) Care Teams Chief Creative Officer Relationship Specialty Start Date End Date Name, MD Ephraim [address] [place] [phone] PCP - General Family Medicine 01/31/16
--- OUTSIDE RECORDS SUMMARY | 2025-04-11 14:02 | XMS_ITS | Encounter Summary ---
Author Organization [employer] Address [address] [facility] [address] [place] [address] Care Team Providers Care Chief Dispatcher Name Role Phone Name, Ephraim FERGUSON Primary Care Provider [phone] Encounter Details Date Type Department Care Team ([facility] st Contact Info) Description 05/08/2024 Orders Only [facility]S [address] [place], [place] [phone] Kermit Rivera MD [address] [place] [address] Social History Tobacco Use Types Packs/Day Years [...] Description 06/15/2025 11:00 AM EST Office Visit [facility] MED[facility] [address] [place] [address] Tiffany Flanagan MD [address] [place] [address] documented as of this encounter Visit Diagnoses Not on filedocumented in this encounter Additional Health Concerns Assessment Noted Time PHQ-9 Depression Total Score: 24 022 3:27 PM EST documented as of this encounter Care Teams Chief Dispatcher Relationship Specialty Start Date End Date Name, MD Ephraim [address] [place] [address] PCP - General Family Medicine 01/31/16 documented as of this encounter
--- OUTSIDE RECORDS SUMMARY | 2025-04-11 14:02 | XMS_ITS | Encounter Summary ---
Author Organization [employer] Address [address] [place] [address] [address] [place] [address] Care Team Providers Care Traffic Signal Repairer Name Role Phone Name, Ephraim FERGUSON Primary Care Provider [phone] Encounter Details Date Type Department Care Team ([facility] st Contact Info) Description 05/13/2022 Abstract [facility] MEDICINE [address] [place], [place] [phone] Name, MD Ephraim [address] [place] [address] Social History Tobacco Use Types Packs/Day Years [...] 05/13/2022 3:27 PM Elisa Holley MA * How difficult have these problems made it for you to do your work, take care of things at home, or get along with other people? Answer Date of Assessment Author Very difficult 05/13/2022 3:27 PM Sabina Holley MA documented as of this encounter Plan of Treatment Upcoming Encounters Date Type Department Care Team (Late st Contact Info) Description 06/15/2025 11:00 AM EST Office Visit [facility] [address] [place] [address] Tiffany Flanagan MD [address] [place] [address] documented as of this encounter Visit Diagnoses Not on filedocumented in this encounter Additional Health Concerns Assessment Noted Time PHQ-9 Depression Total Score: 24 022 3:27 PM EST documented as of this encounter Care Teams Traffic Signal Repairer Relationship Specialty Start Date End Date Name, MD Ephraim [address] [place] [address] PCP - General Family Medicine 01/31/16 documented as of this encounter
--- OUTSIDE RECORDS SUMMARY | 2025-04-11 14:02 | XMS_ITS | Encounter Summary ---
Author Organization [employer] Address [address] [place] [address] Care Team Providers Care Camp Advisor Name Role Phone Name, Ephraim FERGUSON Primary Care Provider [phone] Reason for Visit * Reason Onset Date Comments Appointment Request 07/26/2024 Encounter Details Date Type Department Care Team ([facility] st Contact Info) Description 07/26/2024 Telephone [facility] [address] [place], [place] [id number] Name, MD Ephraim [address] [place] [address] Appointment Request Social History Tobacco Use Types [...] 11:00 AM EST Office Visit [facility] [address] [place] [address] Tiffany Flanagan MD [address] [place] [address] documented as of this encounter Visit Diagnoses Not on filedocumented in this encounter Additional Health Concerns Assessment Noted Time PHQ-9 Depression Total Score: 24 022 3:27 PM EST documented as of this encounter Care Teams Camp Advisor Relationship Specialty Start Date End Date Name, MD Ephraim [address] [place] [address] PCP - General Family Medicine 01/31/16 documented as of this encounter
== END 2025-04-11 11:18 | disposition home or self-care (01) ==
LOC: HO.HHCL 11:17
PROVIDERS: PCP Internal Medicine Geriatric Medicine; Visit Provider Internal Medicine Geriatric Medicine
DX: Z00.00 Encounter for general adult medical examination without abnormal findings (principal); Z13.1 Encounter for screening for diabetes mellitus; Z13.220 Encounter for screening for lipoid disorders
CPT/HCPCS: 36415; 80053; 80061; 85025